=== PATIENT | female | born 1945 | race African-American/Black ===

== ENCOUNTER → 2017-01-05 | Outpatient (CLI) | payer MEDICARE, OTHER ==
[~2017-01-05] MED LIST: ALPR0.25 PO; ASPI81CH43 PO; ATOR20TA50 PO; FOLI1TAB51 PO; GABA300C8 PO; LOSA50TA6 PO; METH2.5T3 PO; NOR10T PO; ONDA8TAB6 PO; OXY10CRT PO; PRAV20TA3 PO
[2017-01-05 15:38] LABS: Basophils # (auto) 0 uL; Basophils % (auto) 0.2 % (0.0-2.0); DEFINITIVE VIEW TRANSMISSION; Eosinophils # (auto) 0.1 uL; Eosinophils % (auto) 1.8 % (0.0-7.0); Hematocrit 36.8 % (36.0-46.0); Lymphocytes # (auto) 1.8 uL; Lymphocytes % (auto) 28.4 % (10.0-50.0); Mean Corpuscular Hemoglobin 28.8 pg (28.0-32.0); Mean Corpuscular Hgb Conc. 32.5 g/dL (32.0-36.0); Mean Corpuscular Volume 88.8 fL (80.0-100.0); Monocytes # (auto) 0.6 uL; Monocytes % (auto) 9.8 % (0.0-12.0); Neutrophils # (auto) 3.8 uL; Neutrophils % (auto) 59.8 % (37.0-80.0); Platelet Count (auto) 359 10^3/uL (140-450); Red Cell Distribution Width 19.1 % (11.6-16.0); White Blood Cell 6.4 10^3/uL (4.4-10.8)
[2017-01-05 15:49] LABS: Albumin 3.5 g/dL (3.4-5.0); BUN/Creatinine Ratio 13.6; Bilirubin, Total 0.4 mg/dL (0.2-1.0); Calcium 9.1 mg/dL (8.5-10.1); Potassium 4.3 mmol/L (3.5-5.1); Total Protein 7.4 g/dL (6.4-8.2)
[2017-01-05 17:32] LABS: Anisocytosis Slight; Platelet Estimate Adequate
== END | disposition home or self-care (01) ==
LOC: LAB 14:34
DX: M06.9 Rheumatoid arthritis, unspecified (principal); M25.50 Pain in unspecified joint; D64.9 Anemia, unspecified; I10 Essential (primary) hypertension
CPT/HCPCS: 36415; 80053; 85025; 85652; 86141

== ENCOUNTER → 2017-04-13 | Outpatient (CLI) | payer MEDICARE, OTHER ==
[~2017-04-13] MED LIST changes: +GABA-497 PO; -GABA300C8 PO
[2017-04-13 16:30] LABS: Potassium 4.2 mmol/L (3.5-5.1)
[2017-04-13 16:31] LABS: Albumin 3.6 g/dL (3.4-5.0); BUN/Creatinine Ratio 11.8; Bilirubin, Total 0.3 mg/dL (0.2-1.0); Calcium 9.8 mg/dL (8.5-10.1); Total Protein 7.3 g/dL (6.4-8.2)
[2017-04-13 16:48] LABS: Basophils # (auto) 0 uL; Basophils % (auto) 0.5 % (0.0-2.0); DEFINITIVE VIEW TRANSMISSION; Eosinophils # (auto) 0.2 uL; Eosinophils % (auto) 3.5 % (0.0-7.0); Hematocrit 36.1 % (36.0-46.0); Hemoglobin 11.7 g/dL (12.2-16.2); Lymphocytes # (auto) 2.1 uL; Lymphocytes % (auto) 36.5 % (10.0-50.0); Mean Corpuscular Hgb Conc. 32.3 g/dL (32.0-36.0); Mean Corpuscular Volume 86.7 fL (80.0-100.0); Mean Platelet Volume 7.6 fL (7.4-10.4); Monocytes # (auto) 0.6 uL; Monocytes % (auto) 9.9 % (0.0-12.0); Neutrophils # (auto) 2.8 uL; Neutrophils % (auto) 49.6 % (37.0-80.0); Platelet Count (auto) 424 10^3/uL (140-450); White Blood Cell 5.7 10^3/uL (4.4-10.8)
[2017-04-13 16:49] LABS: Red Cell Distribution Width 20.5 % (11.6-16.0)
[2017-04-13 19:07] LABS: Platelet Estimate Adequate
[2017-04-13 19:08] LABS: Anisocytosis Moderate
== END | disposition home or self-care (01) ==
LOC: LAB 15:14
DX: M06.9 Rheumatoid arthritis, unspecified (principal); M25.50 Pain in unspecified joint; D64.9 Anemia, unspecified; I10 Essential (primary) hypertension
CPT/HCPCS: 36415; 80053; 85025; 85652; 86141

== ENCOUNTER → 2017-06-25 | Outpatient (CLI) | payer MEDICARE, OTHER ==
[2017-06-25 10:13] LABS: Basophils # (auto) 0 uL; Basophils % (auto) 0.3 % (0.0-2.0); CONDITION Y; DEFINITIVE SEE PRINTOUT; Eosinophils # (auto) 0.2 uL; Eosinophils % (auto) 3.7 % (0.0-7.0); Hematocrit 33.6 % (36.0-46.0); Hemoglobin 10.9 g/dL (12.2-16.2); Lymphocytes % (auto) 35.8 % (10.0-50.0); Mean Corpuscular Hemoglobin 27.6 pg (28.0-32.0); Mean Corpuscular Hgb Conc. 32.3 g/dL (32.0-36.0); Mean Corpuscular Volume 85.5 fL (80.0-100.0); Mean Platelet Volume 7.6 fL (7.4-10.4); Monocytes # (auto) 0.6 uL; Monocytes % (auto) 9.9 % (0.0-12.0); Neutrophils # (auto) 2.9 uL; Neutrophils % (auto) 50.3 % (37.0-80.0); Platelet Count (auto) 312 10^3/uL (140-450); White Blood Cell 5.7 10^3/uL (4.4-10.8)
[2017-06-25 10:16] LABS: Red Cell Distribution Width 20.8 % (11.6-16.0)
[2017-06-25 10:33] LABS: Anisocytosis Slight
[2017-06-25 10:34] LABS: Platelet Estimate Adequate
[2017-06-25 10:51] LABS: Albumin 3.3 g/dL (3.4-5.0); BUN/Creatinine Ratio 17.3; Bilirubin, Total 0.3 mg/dL (0.2-1.0); Calcium 9.3 mg/dL (8.5-10.1); Potassium 4.1 mmol/L (3.5-5.1)
== END | disposition home or self-care (01) ==
LOC: LAB 09:19
DX: I10 Essential (primary) hypertension (principal); M06.9 Rheumatoid arthritis, unspecified; D64.9 Anemia, unspecified; M25.50 Pain in unspecified joint; Z79.899 Other long term (current) drug therapy
CPT/HCPCS: 36415; 80053; 85025; 85652; 86141

== ENCOUNTER 2017-07-26 17:31 | Emergency (ER) | payer MEDICARE, OTHER ==
[~2017-07-26] VITALS: Ht 157.5 cm; Wt 77.1 kg
[2017-07-26 18:51] LABS: Basophils # (auto) 0 uL; Basophils % (auto) 0.6 % (0.0-2.0); Eosinophils # (auto) 0.2 uL; Eosinophils % (auto) 2.8 % (0.0-7.0); Hematocrit 34.4 % (36.0-46.0); Lymphocytes # (auto) 2.6 uL; Lymphocytes % (auto) 31.5 % (10.0-50.0); Mean Corpuscular Hemoglobin 27.6 pg (28.0-32.0); Mean Corpuscular Hgb Conc. 31.9 g/dL (32.0-36.0); Mean Corpuscular Volume 86.5 fL (80.0-100.0); Monocytes # (auto) 0.9 uL; Monocytes % (auto) 10.6 % (0.0-12.0); Neutrophils # (auto) 4.6 uL; Neutrophils % (auto) 54.5 % (37.0-80.0); Nucleated Red Blood Cells % 0.1 %; Platelet Count (auto) 370 10^3/uL (140-450); Red Blood Cells 3.98 10^6/uL (4.0-5.20); Red Cell Distribution Width 19.2 % (11.8-14.3); White Blood Cell 8.4 10^3/uL (4.4-10.8)
[2017-07-26 19:05] LABS: Alanine Aminotransferase 17 U/L (13-56); Albumin 3.6 g/dL (3.4-5.0); Alkaline Phosphatase 77 U/L (45-117); Anion Gap 6 (5-15); Aspartate Aminotransferase 16 U/L (15-37); BUN/Creatinine Ratio 14.7; Bilirubin, Total 0.2 mg/dL (0.2-1.0); Blood Urea Nitrogen 15 mg/dL (7-18); Calcium 9.5 mg/dL (8.5-10.1); Carbon Dioxide 26 mmol/L (21-32); Chloride 108 mmol/L (98-107); GFR African American 69 mL/min; GFR Non-African American 57 mL/min; Glucose 90 mg/dL (74-106); Magnesium 2.3 mg/dL (1.6-2.6); Potassium 4.5 mmol/L (3.5-5.1); Sodium 140 mmol/L (136-145); Total Protein 7.8 g/dL (6.4-8.2)
[2017-07-26] MEDS ORDERED: HYDROcodone-ACET 5/325MG TAB PO ONE (22:45)
[2017-07-27 00:28] LABS: Urine Bacteria FEW /hpf (None Seen); Urine Blood Negative /uL (Negative); Urine Mucus FEW (None Seen); Urine Specific Gravity 1.008 (1.001-1.035); Urine WBC 12 /hpf (0 - 5)
[2017-07-27] MEDS ORDERED: MORPHINE SULF INJ 2 MG/ML SYRINGE 1ML IV ONE (01:15)
[2017-07-27 04:30] VITALS: BP 134/68
== END 2017-07-27 05:37 | disposition home or self-care (01) ==
LOC: ER 17:31
DX: S43.401A Unspecified sprain of right shoulder joint, initial encounter (principal); S16.1XXA Strain of muscle, fascia and tendon at neck level, initial encounter; S29.019A Strain of muscle and tendon of unspecified wall of thorax, initial encounter; M19.90 Unspecified osteoarthritis, unspecified site; I25.10 Atherosclerotic heart disease of native coronary artery without angina pectoris; I50.9 Heart failure, unspecified; I11.0 Hypertensive heart disease with heart failure; M47.814 Spondylosis without myelopathy or radiculopathy, thoracic region; Z88.8 Allergy status to other drugs, medicaments and biological substances; Z79.82 Long term (current) use of aspirin; Z79.899 Other long term (current) drug therapy; Z90.49 Acquired absence of other specified parts of digestive tract; Z87.81 Personal history of (healed) traumatic fracture; X58.XXXA Exposure to other specified factors, initial encounter; Y93.89 Activity, other specified; Y92.89 Other specified places as the place of occurrence of the external cause; Y99.8 Other external cause status
CPT/HCPCS: 36415; 71020; 72125; 72128; 73200; 80053; 81001; 83735; 84484; 85025; 93005; 96374; 99285; J2270

== ENCOUNTER → 2017-08-27 | Outpatient (CLI) | payer MEDICARE, OTHER ==
[2017-08-27 10:51] LABS: Basophils # (auto) 0 uL; Eosinophils # (auto) 0.3 uL; Lymphocytes # (auto) 1.5 uL; Monocytes # (auto) 0.7 uL; Neutrophils # (auto) 2.4 uL; White Blood Cell 4.9 10^3/uL (4.4-10.8)
[2017-08-27 10:54] LABS: Basophils % (auto) 0.8 % (0.0-2.0); Eosinophils % (auto) 5.7 % (0.0-7.0); Hematocrit 33.6 % (36.0-46.0); Hemoglobin 10.7 g/dL (12.2-16.2); Lymphocytes % (auto) 29.5 % (10.0-50.0); Mean Corpuscular Hemoglobin 26.5 pg (28.0-32.0); Mean Corpuscular Hgb Conc. 31.8 g/dL (32.0-36.0); Mean Corpuscular Volume 83.4 fL (80.0-100.0); Nucleated Red Blood Cells % 0.1 %; Platelet Count (auto) 315 10^3/uL (140-450)
[2017-08-27 11:16] LABS: Albumin 3.4 g/dL (3.4-5.0); BUN/Creatinine Ratio 18.9; Bilirubin, Total 0.3 mg/dL (0.2-1.0); Calcium 9.5 mg/dL (8.5-10.1); Potassium 4.3 mmol/L (3.5-5.1); Total Protein 7.7 g/dL (6.4-8.2)
== END | disposition home or self-care (01) ==
LOC: LAB 10:05
DX: I10 Essential (primary) hypertension (principal); M06.9 Rheumatoid arthritis, unspecified; M25.50 Pain in unspecified joint; Z79.899 Other long term (current) drug therapy
CPT/HCPCS: 36415; 80053; 85025; 85652; 86141

== ENCOUNTER → 2017-10-05 | Outpatient (CLI) | payer MEDICARE, OTHER ==
[2017-10-05 17:17] LABS: Basophils # (auto) 0 uL; Eosinophils # (auto) 0 uL; Eosinophils % (auto) 0.7 % (0.0-7.0); White Blood Cell 6.2 10^3/uL (4.4-10.8)
[2017-10-05 17:20] LABS: Basophils % (auto) 0.4 % (0.0-2.0); Hematocrit 34.3 % (36.0-46.0); Hemoglobin 10.9 g/dL (12.2-16.2); Lymphocytes # (auto) 1.6 uL; Lymphocytes % (auto) 25.3 % (10.0-50.0); Mean Corpuscular Hemoglobin 26.2 pg (28.0-32.0); Mean Corpuscular Hgb Conc. 31.6 g/dL (32.0-36.0); Mean Corpuscular Volume 82.8 fL (80.0-100.0); Mean Platelet Volume 7.5 fL (6.9-10.8); Monocytes # (auto) 0.7 uL; Monocytes % (auto) 10.6 % (0.0-12.0); Neutrophils # (auto) 3.9 uL; Platelet Count (auto) 299 10^3/uL (140-450); Red Cell Distribution Width 17.8 % (11.8-14.3)
[2017-10-05 17:41] LABS: Reticulocyte Count 1.14 % (0.5-1.5)
[2017-10-05 17:43] LABS: Albumin 3.6 g/dL (3.4-5.0); BUN/Creatinine Ratio 19.5; Bilirubin, Total 0.3 mg/dL (0.2-1.0); Calcium 9.5 mg/dL (8.5-10.1); Potassium 4.2 mmol/L (3.5-5.1)
[2017-10-05 17:50] LABS: Temperature: 22.1 C (20.0-25.0)
[2017-10-06 08:06] LABS: Thyroxine (T4) 6.5 ug/dL (4.5-12.0)
[2017-10-07 01:09] LABS: Erythropoietin 49.5 mIU/mL (2.6-18.5)
== END | disposition home or self-care (01) ==
LOC: LAB 16:38
PROVIDERS: ATTEND Internal Medicine
DX: D46.9 Myelodysplastic syndrome, unspecified (principal); Z79.899 Other long term (current) drug therapy
CPT/HCPCS: 36415; 80053; 82607; 82668; 82728; 82746; 83010; 83540; 83550; 83615; 84436; 84443; 85025; 85045; 86038; 86880; 86885

== ENCOUNTER → 2017-11-11 | Outpatient (CLI) | payer MEDICARE, OTHER ==
[~2017-11-11] MED LIST changes: -GABA-497 PO; +GABA300C10 PO
[2017-11-11 11:14] LABS: Basophils # (auto) 0 uL; Basophils % (auto) 0.7 % (0.0-2.0); Eosinophils # (auto) 0.1 uL; Hemoglobin 11.8 g/dL (12.2-16.2); Lymphocytes # (auto) 1.5 uL; Mean Corpuscular Hemoglobin 26.7 pg (28.0-32.0); Monocytes # (auto) 0.4 uL; Neutrophils # (auto) 2.6 uL; Nucleated Red Blood Cells % 0.1 %; Red Blood Cells 4.42 10^6/uL (4.0-5.20)
[2017-11-11 11:16] LABS: Eosinophils % (auto) 2.7 % (0.0-7.0); Hematocrit 37.7 % (36.0-46.0); Lymphocytes % (auto) 31.6 % (10.0-50.0); Mean Corpuscular Hgb Conc. 31.3 g/dL (32.0-36.0); Mean Corpuscular Volume 85.3 fL (80.0-100.0); Monocytes % (auto) 9.5 % (0.0-12.0); Neutrophils % (auto) 55.5 % (37.0-80.0); Platelet Count (auto) 260 10^3/uL (140-450); White Blood Cell 4.6 10^3/uL (4.4-10.8)
[2017-11-11 11:23] LABS: Red Cell Distribution Width 22.1 % (11.8-14.3)
[2017-11-11 14:24] LABS: % Iron Saturation 13.6 % (15-50)
== END | disposition home or self-care (01) ==
LOC: LAB 11:06
PROVIDERS: ATTEND Internal Medicine
DX: D50.9 Iron deficiency anemia, unspecified (principal)
CPT/HCPCS: 36415; 82728; 83540; 83550; 85025

== ENCOUNTER → 2017-12-08 | Outpatient (CLI) | payer MEDICARE, OTHER ==
[2017-12-08 14:45] LABS: Basophils # (auto) 0.1 uL; Eosinophils # (auto) 0.1 uL; Eosinophils % (auto) 2.5 % (0.0-7.0); Hematocrit 41.1 % (36.0-46.0); Hemoglobin 13.3 g/dL (12.2-16.2); Lymphocytes # (auto) 1.8 uL; Lymphocytes % (auto) 32.7 % (10.0-50.0); Mean Corpuscular Hemoglobin 28.7 pg (28.0-32.0); Mean Corpuscular Hgb Conc. 32.3 g/dL (32.0-36.0); Monocytes # (auto) 0.6 uL; Monocytes % (auto) 9.8 % (0.0-12.0); Nucleated Red Blood Cells % 0.1 %; Platelet Count (auto) 293 10^3/uL (140-450); Red Blood Cells 4.61 10^6/uL (4.0-5.20); White Blood Cell 5.6 10^3/uL (4.4-10.8)
[2017-12-08 15:05] LABS: Albumin 3.6 g/dL (3.4-5.0); BUN/Creatinine Ratio 13.5; Bilirubin, Total 0.3 mg/dL (0.2-1.0); Calcium 8.9 mg/dL (8.5-10.1); Potassium 3.9 mmol/L (3.5-5.1); Total Protein 7.4 g/dL (6.4-8.2)
[2017-12-08 19:08] LABS: Red Cell Distribution Width 22.9 % (11.8-14.3)
== END | disposition home or self-care (01) ==
LOC: LAB 14:30
PROVIDERS: ATTEND Internal Medicine
DX: D50.9 Iron deficiency anemia, unspecified (principal)
CPT/HCPCS: 36415; 80053; 82607; 83540; 83615; 85025

== ENCOUNTER → 2018-03-07 | Outpatient (CLI) | payer MEDICARE, OTHER ==
[2018-03-07 11:32] LABS: Basophils # (auto) 0 uL; Basophils % (auto) 0.5 % (0.0-2.0); Eosinophils # (auto) 0.2 uL; Eosinophils % (auto) 3.7 % (0.0-7.0); Hematocrit 41.4 % (36.0-46.0); Hemoglobin 13.6 g/dL (12.2-16.2); Lymphocytes # (auto) 1.8 uL; Lymphocytes % (auto) 37.3 % (10.0-50.0); Mean Corpuscular Hemoglobin 30.4 pg (28.0-32.0); Mean Corpuscular Volume 92.2 fL (80.0-100.0); Monocytes # (auto) 0.5 uL; Monocytes % (auto) 10.9 % (0.0-12.0); Neutrophils # (auto) 2.3 uL; Neutrophils % (auto) 47.6 % (37.0-80.0); Platelet Count (auto) 270 10^3/uL (140-450); Red Blood Cells 4.49 10^6/uL (4.0-5.20); Red Cell Distribution Width 15.2 % (11.8-14.3); White Blood Cell 4.8 10^3/uL (4.4-10.8)
[2018-03-07 12:02] LABS: Albumin 3.7 g/dL (3.4-5.0); BUN/Creatinine Ratio 8.4; Bilirubin, Total 0.4 mg/dL (0.2-1.0); Calcium 9.8 mg/dL (8.5-10.1); Potassium 4.3 mmol/L (3.5-5.1); Total Protein 7.7 g/dL (6.4-8.2)
== END | disposition home or self-care (01) ==
LOC: LAB 10:55
PROVIDERS: ATTEND Internal Medicine
DX: D50.9 Iron deficiency anemia, unspecified (principal); I12.9 Hypertensive chronic kidney disease with stage 1 through stage 4 chronic kidney disease, or unspecified chronic kidney disease; N18.3 Chronic kidney disease, stage 3 (moderate); Z79.899 Other long term (current) drug therapy
CPT/HCPCS: 36415; 80053; 82728; 83615; 85025

== ENCOUNTER → 2018-06-13 | Outpatient (CLI) | payer MEDICARE, OTHER ==
[~2018-06-13] MED LIST changes: +ONDA-143 PO; -ONDA8TAB6 PO
[2018-06-13 15:17] LABS: Basophils # (auto) 0 uL; Basophils % (auto) 0.5 % (0.0-2.0); Eosinophils # (auto) 0.2 uL; Eosinophils % (auto) 3.3 % (0.0-7.0); Hematocrit 41.9 % (36.0-46.0); Hemoglobin 13.9 g/dL (12.2-16.2); Lymphocytes # (auto) 2.3 uL; Mean Corpuscular Hemoglobin 30.2 pg (28.0-32.0); Mean Corpuscular Volume 91.3 fL (80.0-100.0); Monocytes # (auto) 0.7 uL; Monocytes % (auto) 11.2 % (0.0-12.0); Neutrophils # (auto) 2.9 uL; Platelet Count (auto) 280 10^3/uL (140-450); Red Blood Cells 4.59 10^6/uL (4.0-5.20); Red Cell Distribution Width 14.8 % (11.8-14.3); White Blood Cell 6.1 10^3/uL (4.4-10.8)
[2018-06-13 15:56] LABS: % Iron Saturation 19.2 % (15-50)
[2018-06-13 18:04] LABS: BUN/Creatinine Ratio 10.3; Calcium 9.1 mg/dL (8.5-10.1); Potassium 3.9 mmol/L (3.5-5.1)
[2018-06-13 18:40] LABS: Bilirubin, Total 0.3 mg/dL (0.2-1.0)
== END | disposition home or self-care (01) ==
LOC: LAB 14:40
PROVIDERS: ATTEND Internal Medicine
DX: D50.9 Iron deficiency anemia, unspecified (principal); E78.5 Hyperlipidemia, unspecified; I12.9 Hypertensive chronic kidney disease with stage 1 through stage 4 chronic kidney disease, or unspecified chronic kidney disease; N18.9 Chronic kidney disease, unspecified; M06.9 Rheumatoid arthritis, unspecified; Z79.899 Other long term (current) drug therapy
CPT/HCPCS: 36415; 80053; 82728; 83540; 83550; 83615; 85025

== ENCOUNTER → 2018-10-14 | Outpatient (CLI) | payer MEDICARE, OTHER ==
[~2018-10-14] MED LIST changes: +LOSA-46 PO; -LOSA50TA6 PO
[2018-10-14 13:39] LABS: Basophils # (auto) 0 uL; Eosinophils # (auto) 0.1 uL; Eosinophils % (auto) 2.7 % (0.0-7.0); Hematocrit 38.9 % (36.0-46.0); Hemoglobin 12.6 g/dL (12.2-16.2); Lymphocytes # (auto) 1.5 uL; Lymphocytes % (auto) 34.7 % (10.0-50.0); Mean Corpuscular Hemoglobin 29.8 pg (28.0-32.0); Mean Corpuscular Hgb Conc. 32.5 g/dL (32.0-36.0); Mean Corpuscular Volume 91.7 fL (80.0-100.0); Monocytes # (auto) 0.4 uL; Monocytes % (auto) 8.4 % (0.0-12.0); Neutrophils # (auto) 2.3 uL; Neutrophils % (auto) 53.2 % (37.0-80.0); Platelet Count (auto) 259 10^3/uL (140-450); Red Blood Cells 4.24 10^6/uL (4.0-5.20); White Blood Cell 4.4 10^3/uL (4.4-10.8)
[2018-10-14 14:15] LABS: % Iron Saturation 18.3 % (15-50)
[2018-10-14 14:27] LABS: Albumin 3.5 g/dL (3.4-5.0); Potassium 4.2 mmol/L (3.5-5.1)
[2018-10-14 14:32] LABS: BUN/Creatinine Ratio 8.7; Bilirubin, Total 0.3 mg/dL (0.2-1.0); Total Protein 7.2 g/dL (6.4-8.2)
== END | disposition home or self-care (01) ==
LOC: LAB 13:12
PROVIDERS: ATTEND Internal Medicine
DX: D50.9 Iron deficiency anemia, unspecified (principal)
CPT/HCPCS: 36415; 80053; 82728; 83540; 83550; 83615; 85025

== ENCOUNTER → 2018-12-28 | Outpatient (CLI) | payer MEDICARE, OTHER ==
[2018-12-28 15:59] LABS: Basophils # (auto) 0 uL; Basophils % (auto) 0.5 % (0.0-2.0); Eosinophils # (auto) 0.2 uL; Eosinophils % (auto) 2.8 % (0.0-7.0); Hematocrit 39.5 % (36.0-46.0); Hemoglobin 12.8 g/dL (12.2-16.2); Lymphocytes # (auto) 1.8 uL; Lymphocytes % (auto) 30.9 % (10.0-50.0); Mean Corpuscular Hemoglobin 28.9 pg (28.0-32.0); Mean Corpuscular Hgb Conc. 32.3 g/dL (32.0-36.0); Mean Corpuscular Volume 89.3 fL (80.0-100.0); Monocytes # (auto) 0.5 uL; Neutrophils # (auto) 3.3 uL; Neutrophils % (auto) 57.8 % (37.0-80.0); Nucleated Red Blood Cells % 0.1 %; Platelet Count (auto) 237 10^3/uL (140-450); Red Blood Cells 4.42 10^6/uL (4.0-5.20); Red Cell Distribution Width 15.4 % (11.8-14.3); White Blood Cell 5.7 10^3/uL (4.4-10.8)
[2018-12-28 16:08] LABS: % Iron Saturation 15.6 % (15-50)
== END | disposition home or self-care (01) ==
LOC: LAB 14:30
PROVIDERS: ATTEND Internal Medicine
DX: D50.9 Iron deficiency anemia, unspecified (principal)
CPT/HCPCS: 36415; 83540; 83550; 85025

== ENCOUNTER 2019-01-28 22:59 | Emergency (ER) | payer MEDICARE, OTHER ==
[~2019-01-28] VITALS: Ht 160 cm; Wt 74.8 kg
[2019-01-28 23:45] LABS: Basophils # (auto) 0 uL; Basophils % (auto) 0.6 % (0.0-2.0); Eosinophils # (auto) 0.2 uL; Eosinophils % (auto) 3.2 % (0.0-7.0); Hematocrit 39.8 % (36.0-46.0); Hemoglobin 12.8 g/dL (12.2-16.2); Lymphocytes # (auto) 2.3 uL; Lymphocytes % (auto) 33.3 % (10.0-50.0); Mean Corpuscular Hemoglobin 28.7 pg (28.0-32.0); Mean Corpuscular Hgb Conc. 32.2 g/dL (32.0-36.0); Mean Corpuscular Volume 89.2 fL (80.0-100.0); Monocytes # (auto) 0.5 uL; Neutrophils # (auto) 3.7 uL; Neutrophils % (auto) 54.9 % (37.0-80.0); Platelet Count (auto) 275 10^3/uL (140-450); Red Blood Cells 4.47 10^6/uL (4.0-5.20); Red Cell Distribution Width 16.6 % (11.8-14.3); White Blood Cell 6.8 10^3/uL (4.4-10.8)
[2019-01-29 00:02] LABS: Albumin 3.8 g/dL (3.4-5.0); Anion Gap 9 (5-15); BUN/Creatinine Ratio 15.9; Blood Urea Nitrogen 14 mg/dL (7-18); Calcium 9.8 mg/dL (8.5-10.1); Carbon Dioxide 23 mmol/L (21-32); Chloride 109 mmol/L (98-107); GFR African American 81 mL/min; GFR Non-African American 67 mL/min; Glucose 90 mg/dL (74-106); Magnesium 2.3 mg/dL (1.6-2.6); Potassium 3.6 mmol/L (3.5-5.1); Sodium 141 mmol/L (136-145)
[2019-01-29 00:05] LABS: Urine Bacteria NONE SEEN /hpf (None Seen); Urine Blood Negative /uL (Negative); Urine Specific Gravity 1.004 (1.001-1.035); Urine WBC <1 /hpf (0 - 5)
[2019-01-29 00:07] LABS: Alanine Aminotransferase 17 U/L (13-56); Alkaline Phosphatase 70 U/L (45-117); Aspartate Aminotransferase 18 U/L (15-37); Bilirubin, Total 0.3 mg/dL (0.2-1.0); Total Protein 7.9 g/dL (6.4-8.2)
[2019-01-29] MEDS ORDERED: ONDANSETRON HCL 4 MG/2 ML VIAL IV ONE (00:45)
[2019-01-29] MEDS ORDERED: HYDROcodone-ACET 10/325MG TAB PO ONE (00:45)
[2019-01-29] MEDS ORDERED: cloNIDine HCL 0.1 MG TAB PO ONE ×2 (00:45→02:00)
[2019-01-29] MEDS ORDERED: hydrALAZINE HCL 20 MG/ML VL IV ONE (04:15)
[2019-01-29 05:30] VITALS: BP 137/76
== END 2019-01-29 05:31 | disposition home or self-care (01) ==
LOC: EDBD 22:59 → ER 22:59
DX: R51 Headache (principal); I12.9 Hypertensive chronic kidney disease with stage 1 through stage 4 chronic kidney disease, or unspecified chronic kidney disease; N18.9 Chronic kidney disease, unspecified; F41.9 Anxiety disorder, unspecified; M19.90 Unspecified osteoarthritis, unspecified site; I25.10 Atherosclerotic heart disease of native coronary artery without angina pectoris; Z88.1 Allergy status to other antibiotic agents; Z88.8 Allergy status to other drugs, medicaments and biological substances; Z79.82 Long term (current) use of aspirin; Z79.899 Other long term (current) drug therapy; Z90.49 Acquired absence of other specified parts of digestive tract
CPT/HCPCS: 36415; 70450; 71046; 72125; 80053; 81001; 83735; 84484; 85025; 93005; 94761; 96374; 96375; 99284; J0360; J2405

== ENCOUNTER 2023-01-30 16:59 | Emergency (ER) | payer MEDICARE, OTHER ==
[~2023-01-30] VITALS: Ht 160 cm; Wt 79.0 kg
[~2023-01-30 16:59] MED LIST changes: -LOSA-46 PO; +LOSA-69 PO; +METH2.5T PO; -METH2.5T3 PO
[2023-01-30] MEDS ORDERED: HYDROmorphone HCL 2 MG/ML VL/or syr IM ONE (18:00)
[2023-01-30 18:23] LABS: Basophils # (auto) 0 10 ^3/uL (0-0.2); Basophils % (auto) 0.7 % (0.0-2.0); Eosinophils # (auto) 0.2 10 ^3/uL (0-0.8); Eosinophils % (auto) 2.8 % (0.0-7.0); Hematocrit 39.2 % (36.0-46.0); Hemoglobin 12.9 g/dL (12.2-16.2); Lymphocytes # (auto) 1.5 10 ^3/uL (0.4-5.4); Lymphocytes % (auto) 24.4 % (10.0-50.0); Mean Corpuscular Hemoglobin 29.9 pg (28.0-32.0); Mean Corpuscular Volume 90.7 fL (80.0-100.0); Monocytes # (auto) 0.3 10 ^3/uL (0-1.3); Monocytes % (auto) 5.6 % (0.0-12.0); Neutrophils % (auto) 66.5 % (37.0-80.0); Red Blood Cells 4.32 10^6/uL (4.0-5.20); Red Cell Distribution Width 15.1 % (11.8-14.3)
[2023-01-30 18:43] LABS: Albumin 3.9 g/dL (3.4-5.0); Calcium 9.7 mg/dL (8.5-10.1); Potassium 4.1 mmol/L (3.5-5.1)
[2023-01-30 18:46] LABS: Bilirubin, Total 0.2 mg/dL (0.2-1.0); Total Protein 8.2 g/dL (6.4-8.2)
[2023-01-30 20:36] LABS: Urine Bacteria NONE SEEN /hpf (None Seen); Urine Blood Negative /uL (Negative); Urine WBC 2 /hpf (0 - 5)
[2023-01-30 21:46] LABS: Urine Bacteria NONE SEEN /hpf (None Seen); Urine Blood Negative /uL (Negative); Urine Specific Gravity 1.018 (1.001-1.035); Urine WBC 2 /hpf (0 - 5)
[2023-01-31 00:28] VITALS: BP 132/23
== END 2023-01-31 00:36 | disposition home or self-care (01) ==
LOC: ER 16:59
DX: R51.9 Headache, unspecified (principal); I12.9 Hypertensive chronic kidney disease with stage 1 through stage 4 chronic kidney disease, or unspecified chronic kidney disease; N18.9 Chronic kidney disease, unspecified; Z20.822 Contact with and (suspected) exposure to COVID-19
CPT/HCPCS: 36415; 70450; 80053; 81001; 85025; 87426; 93005; 96372; 99285; J1170

== ENCOUNTER 2025-08-21 17:28 | Inpatient (IN) | payer MEDICARE, OTHER ==
[~2025-08-21] VITALS: Ht 160 cm; Wt 77.5 kg
[~2025-08-21 17:28] MED LIST changes: +GABA-1250 PO; -GABA300C10 PO; +LOSA-534 PO; -LOSA-69 PO
--- NOTE | 2025-08-21 17:51 | ED.PDOC ---
GI ASSESSMENT HPI Comments 80 y/o F, BIBA, with PMHx of HTN, CKF, CAD, and HTN presents to the ED for CC of abdominal pain. EMS reports, patient is coming from Urgent Care where staff called d/t patient being hypertensive with a blood pressure of 200/110mmHg. Per EMS, patient went to for initial complaints of LLQ abdominal pain with associated nausea, vomiting, and constipation. Patient relays, that she has PMHx of IBS and had [id number] of "loose" diarrhea on Wednesday (08/19/25) however, has been unable to have a full bowel movement in approximately [id number]. Patient endorses, being given Toradol at [facility] and experiencing no relief. Patient denies melena, hematemesis, chills, fever, or faintness. No other symptoms or modifying factors are present at this time. Chief Complaint: Abdominal Pain Time Seen by MD: 17:45 Primary Care Provider: LOYD Reviewed Notes: Nurses Notes, Medications, Allergies Allergies: Coded Allergies: Cephalexin (Verified Allergy, Severe, 03/21/14) Magnesium Salicylate (Verified Allergy, Severe, 03/21/14) Home Meds Active Scripts Atorvastatin Calcium (ATORVASTATIN CALCIUM) 20 Mg Tab, 10 MG PO HS, #30 TAB Prov:DEANA GARNER MD 08/28/16 Aspirin (Asa) 81 Mg Ch, 81 MG PO DAILY, #30 Prov:DEANA GARNER MD 08/28/16 Reported Medications Folic Acid (FOLIC ACID) 1 Mg Tb, 1 MG PO DAILY 04/10/15 Pravastatin Sodium (PRAVACHOL TABLET) 20 Mg Tb, 40 MG PO HS, #90 04/10/15 Gabapentin (Gabapentin) 300 Mg Cap, 300 MG PO QPM, #60 04/10/15 Methotrexate (Methotrexate) 2.5 Mg Tab, PO QWEEKLY, MG 03/21/14 Alprazolam (Xanax) 0.25 Mg Tb, 0.25 MG PO PRN for ANXIETY 03/21/14 Oxycodone Hcl (OxyCONTIN ER Tablet) 10 Mg Tb, 10 MG PO Q8HPRN PRN for MODERATE PAIN 03/21/14 Hydrocodone-Acetaminophen (Orion 10/325MG) 1 Tab Tb, 1 TAB PO Q4HPRN PRN for MODERATE PAIN 03/21/14 Ondansetron (Zofran) 8 Mg Tab, 8 MG PO Q6HPRN PRN for NAUSEA / VOMITING, TAB 03/21/14 Losartan Potassium (Losartan Potassium) 50 Mg Tab, 50 MG PO BID for 30 Days, MG 03/21/14 Information Source: Patient Mode of Arrival: EMS Timing: Weeks Duration: Since onset Prehospital treatment: None Vomitus: Watery Stool: Impaction Severity: Moderate Recent: None Recent Hx of: None Pain Location: LLQ Modifying Factors: Nothing Associated sign and symptoms: Nausea, Vomiting, Constipation, Abdominal Pain Past Medical History PAST MEDICAL HISTORY: Arthritis, CAD, CKF, HTN Surgical History: Appendectomy, Tonsillectomy CONFIGURATION MANAGEMENT MANAGER History: No Pertinent CONFIGURATION MANAGEMENT MANAGER History Family History Family History: No family hx of DM, No family hx of Heart nancy Social History Smoker: Non-Smoker Alcohol: Rarely Drugs: Denies Drug Use Lives In: Home Constitutional: denies: chills, diaphoresis, fatigue, fever, malaise, sweats, weakness, others EENTM: denies: blurred vision, double vision, ear bleeding, ear discharge, ear drainage, ear pain, ear ringing, eye pain, eye redness, hearing loss, mouth pain, mouth swelling, nasal discharge, nose bleeding, nose congestion, nose pain, photophobia, tearing, throat pain, throat swelling, voice changes, others Respiratory: denies: cough, hemoptysis, orthopnea, SOB at rest, shortness of breath, SOB with excertion, stridor, wheezing, others Cardiovascular: denies: chest pain, dizzy spells, diaphoresis, Dyspnea on exertion, edema, irregular heart beat, left arm pain, lightheadedness, palpitations, PND, syncope, others Gastrointestinal: reports: abdominal pain, constipated, nausea, vomiting; denies: abdomen distended, blood streaked bowels, diarrhea, dysphagia, difficulty swallowing, hematemesis, melena, poor appetite, poor fluid intake, rectal bleeding, rectal pain, others Genitourinary: denies: abnormal vagina bleeding, burning, dyspareunia, dysuria, flank pain, frequency, hematuria, incontinence, pain, , vagina discharge, urgency, others Neurological: denies: dizziness, fainting, headache, left sided numbness, left sided weakness, numbness, paresthesia, pre-existing deficit, right sided numbness, right sided weakness, seizure, speech problems, tingling, tremors, weakness, others Musculoskeletal: denies: back pain, gout, joint pain, joint swelling, muscle pain, muscle stiffness, neck pain, others Integumetry: denies: bruises, change in color, change in hair/nails, dryness, laceration, lesions, lumps, rash, wounds, others Allergic/Immunocompromised: denies: Difficulty Healing, Frequent Infections, Hives, Itching, others Hematologic/Lymphatic: denies: anemia, blood clots, easy bleeding, easy bruising, swollen glands, others Endocrine: denies: excessive hunger, excessive sweating, excessive thirst, excessive urination, flushing, intolerance to cold, intolerance to heat, unexplained weight gain, unexplained weight loss, others Psychiatric: denies: anxiety, bipolar disorder, depression, hopeless, panic disorder, schizophrenia, sleepless, suicidal, others All Other Systems: Reviewed and Negative Physical Exam General Appearance: Moderate Distress, Normal HEENT: Normal ENT Inspection, Pharynx Normal Neck: Full Range of Motion, Non-Tender, Normal, Normal Inspection Respiratory: Chest Non-Tender, Lungs Clear, No Accessory Muscle Use, No Respiratory Distress, Normal Breath Sounds Cardiovascular: No Edema, No Murmur, No Gallop, Normal Peripheral Pulses, Regular Rate/Rhythm Breast Exam: Deferred Gastrointestinal: Diffuse, No Organomegaly, No Pulsatile Mass, Normal Bowel Sounds, Tenderness Genitalia: Deferred Pelvic: Deferred Rectal: Deferred Extremities: No calf tenderness, Normal capillary refill, Normal inspection, Normal range of motion, Non-tender, No pedal edema Musculoskeletal : Apperance: Normal Neurologic: Alert, wood box maker II-XII nml as Tested, No Motor Deficits, Normal Affect, Normal Mood, No Sensory Deficits Cerebellar Function: Normal Reflexes: Normal Skin: Dry, Normal Color, Warm Lymphatic: No Adenopathy Was a procedure done? Was a procedure done?: No GI differential Dx Differential Diagnosis: Bowel Obstruction, Cholangitis, Constipation, Inflammatory BD X-Ray, Labs, Meds, VS Vital Signs Date Time Temp Pulse Resp B/P (MAP) Pulse Ox O2 Delivery O2 Flow Rate FiO2 08/21/25 19:50 88 15 99 Room Air* 0 21 08/21/25 19:30 97.8 88 15 165/78 (107) 99 97.8 08/21/25 18:49 88 98 Room Air* 0 21 08/21/25 18:49 87 16 192/89 (123) 98 08/21/25 18:40 192/89 08/21/25 17:48 85 08/21/25 17:41 98.7 98 18 200/110 98 98.7 Lab Test 08/21/25 20:04 08/21/25 18:00 Range/Units Lactic Acid Level Pending 2.1 *H 0.4-2.0 mmol/L White Blood Count 6.6 4.4-10.8 10^3/uL Red Blood Count 5.05 4.0-5.20 10^6/uL Hemoglobin 15.1 12.2-16.2 g/dL Hematocrit 45.0 36.0-46.0 % Mean Corpuscular Volume 89.1 80.0-100.0 fL Mean Corpuscular Hemoglobin 29.9 28.0-32.0 pg Mean Corpuscular Hemoglobin Concent 33.5 32.0-36.0 g/dL Red Cell Distribution Width 14.6 H 11.8-14.3 % Platelet Count 285 140-450 10^3/uL Mean Platelet Volume 7.8 6.9-10.8 fL Neutrophils (%) (Auto) 66.0 37.0-80.0 % Lymphocytes (%) (Auto) 18.2 10.0-50.0 % Monocytes (%) (Auto) 14.0 H 0.0-12.0 % Eosinophils (%) (Auto) 1.2 0.0-7.0 % Basophils (%) (Auto) 0.6 0.0-2.0 % Neutrophils # (Auto) 4.4 1.6-8.6 10 ^3/uL Lymphocytes # (Auto) 1.2 0.4-5.4 10 ^3/uL Monocytes # (Auto) 0.9 0-1.3 10 ^3/uL Eosinophils # (Auto) 0.1 0-0.8 10 ^3/uL Basophils # (Auto) 0 0-0.2 10 ^3/uL Nucleated Red Blood Cells 0.2 % Sodium Level 141 136-145 mmol/L Potassium Level 3.8 3.5-5.1 mmol/L Chloride Level 104 98-107 mmol/L Carbon Dioxide Level 24 20-31 mmol/L Anion Gap 13 5-15 Blood Urea Nitrogen 9 9-23 mg/dL Creatinine 0.99 0.550-1.02 mg/dL Glomerular Filtration Rate Calc 58 >90 mL/min BUN/Creatinine Ratio 9.1 L 10.0-20.0 Serum Glucose 102 74-106 mg/dL Calcium Level 10.4 8.7-10.4 mg/dL Total Bilirubin 0.4 0.2-1.0 mg/dL Aspartate Amino Transferase (AST) 23 13-40 U/L Alanine Aminotransferase (ALT) 12 7-40 U/L Alkaline Phosphatase 80 46-116 U/L Total Protein 7.9 5.7-8.2 g/dL Albumin 4.4 3.2-4.8 g/dL Lipase 33 12-53 U/L Current Medications Medications (Trade) Dose Ordered Sig/Tim Route Start Time Stop Time Status Last Admin Clonidine HCl (Catapres Tablet) 0.2 mg ONCE ONCE PO 08/21/25 17:45 08/21/25 17:46 DC 08/21/25 18:40 X-Ray, Labs, Meds, VS Comment Imaging was reviewed by this provider, there is no obvious pathological or acute disease process. Pending radiology review Labs were reviewed by this provider, no abnormalities Vital signs reviewed by this provider, clinically stable Blood pressure better controlled after 0.2 clonidine. Time of 1ST Reevaluation: 18:15 Reevaluation 1ST: Unchanged Patient Education/Counseling: Diagnosis, Treatment, Need For Follow Up (Follow up with PCP next available appointment. Return to the emergency department if symptoms worsen.) Family Education/Counseling: No Family Present SEPSIS Sepsis Screen Date sepsis recognized/suspect: Aug 21, 2025 Time Sepsis recognized/suspect: 1734 Recent Procedure: No On Antibiotic Therapy: No Respiratory Rate >20: No Heart Rate >90: Yes Temp<36 C (96.8 F) or >38.3 C: No SBP <90 or MAP <65 mmHG: No New Acute Mental Status Change: No Is the patient on CPAP, BIPAP,: No Physician Orders Ct Ab Pel Wo Con-No Oral Or Iv (08/21/25 17:45) Urinalysis (08/21/25 17:45) Electrocardigram (08/21/25 17:58) Sodium Chloride 0.9% (08/21/25 19:30) Vital Signs Date Time Temp Pulse Resp B/P (MAP) Pulse Ox O2 Delivery O2 Flow Rate FiO2 08/21/25 19:50 88 15 99 Room Air* 0 21 08/21/25 19:30 97.8 88 15 165/78 (107) 99 97.8 08/21/25 18:49 88 98 Room Air* 0 21 08/21/25 18:49 87 16 192/89 (123) 98 08/21/25 18:40 192/89 08/21/25 17:48 85 08/21/25 17:41 98.7 98 18 200/110 98 98.7 Laboratory Tests Test 08/21/25 18:00 08/21/25 20:04 Lactic Acid Level 2.1 mmol/L (0.4-2.0) *H Pending White Blood Count 6.6 10^3/uL (4.4-10.8) Medications Medications Dose Ordered Sig/Tim Route Start Time Stop Time Status Last Admin Dose Admin Clonidine HCl 0.2 mg ONCE ONCE PO 08/21/25 17:45 08/21/25 17:46 DC 08/21/25 18:40 Departure 1 Departure Time of Disposition: 20:30 Impression: Primary Impression: Non-specific colitis Additional Impressions: Dehydration, severe Hypertension Qualified Codes: I10 - Essential (primary) hypertension Disposition: HOME / SELF CARE / HOMELESS Condition: Stable Discharged With: Self Critical Care Note Critical Care Time?: No Stability Stability form required: No Heart Score Heart Score: Heart Score Response (Comments) Value History N/A 0 EKG N/A 0 Age N/A 0 Risk Factors N/A 0 Troponin N/A 0 Total 0 I personally scribed for RONNA SUAZO [employer]DLE SCHOOL COMBINATION TEACHER ([email or web address]) on 08/21/25 at 17:51. Electronically submitted by Lisa Ambrose ([employer]). I personally scribed for RONNA SUAZO [employer] SCHOOL COMBINATION TEACHER ([email or web address]) on 08/21/25 at 18:01. Electronically submitted by Lisa Ambrose ([employer]). I personally scribed for RONNA SUAZO MIDDLE SCHOOL COMBINATION TEACHER ([email or web address]) on 08/21/25 at 18:05. Electronically submitted by Lisa Ambrose ([employer]). I personally scribed for RONNA SUAZO ([email or web address]) on 08/21/25 at 18:06. Electronically submitted by Lisa Ambrose ([email or web address]). RONNA SUAZO Aug 21, 2025 17:51
[2025-08-21 18:32] LABS: Alanine Aminotransferase 12 U/L (7-40); Albumin 4.4 g/dL (3.2-4.8); Alkaline Phosphatase 80 U/L (46-116); Anion Gap 13 (5-15); BUN/Creatinine Ratio 9.1 (10.0-20.0); Carbon Dioxide 24 mmol/L (20-31); Chloride 104 mmol/L (98-107); Glucose 102 mg/dL (74-106); Lipase 33 U/L (12-53); Potassium 3.8 mmol/L (3.5-5.1); Sodium 141 mmol/L (136-145); Total Protein 7.9 g/dL (5.7-8.2)
[2025-08-21 18:33] LABS: Bilirubin, Total 0.4 mg/dL (0.2-1.0)
[2025-08-21 18:37] LABS: Blood Urea Nitrogen 9 mg/dL (9-23); Calcium 10.4 mg/dL (8.7-10.4)
[2025-08-21 18:42] LABS: Hematocrit 45.0 % (36.0-46.0); Hemoglobin 15.1 g/dL (12.2-16.2); Mean Corpuscular Hemoglobin 29.9 pg (28.0-32.0); Mean Corpuscular Volume 89.1 fL (80.0-100.0); Nucleated Red Blood Cells % 0.2 %
[2025-08-21 18:49] VITALS: PULSE 88; O2SAT 98
[2025-08-21 18:53] LABS: Lactic Acid w/Reflex 2.1 mmol/L (0.4-2.0)
--- NOTE | 2025-08-21 18:59 | DVH ---
COMPUTERIZED TOMOGRAPHY ABDOMEN AND PELVIS WITHOUT CONTRAST REASON FOR EXAM: abd pain COMPARISON: None TECHNIQUE: Spiral scans were acquired from the diaphragm to the symphysis pubis without intravenous c ontrast administration. 2-D coronal and sagittal reformatted images were provided. Radiation optimiza tion: All CT scans at this facility use at least one of these dose optimization techniques: Automated exposure control mA and/or kV adjustment per patient size (includes targeted exams where dose is mat ched to clinical indication) or iterative reconstruction. RADIATION DOSE: CTDI: 11.87 mGy DLP: 609.14 mGy-cm FINDINGS: There are 3 mm and 4 mm nodules in the anterior right middle lobe. There is a 5 mm nodule in the rig ht lower lobe near the costophrenic sulcus. There is a 5 mm nodule in the medial right lower lobe pedro pablo r the base. There is a 5 mm nodule at the periphery of the left lower lobe. There are additional scat tered 3-4 mm nodules in the visualized lung bases. There is no pleural effusion. There is no pericard ial effusion. There are coronary artery calcifications. The spleen is not enlarged. The liver is normal in size and contour. Evaluation of the abdominal orga ns is suboptimal in the absence of intravenous contrast. No calcified gallstone is identified. There is no pericholecystic edema. Unenhanced appearance of the pancreas is unremarkable. The adrenal gland s are normal. The kidneys are similar in size. There is no hydronephrosis of either kidney. There is no renal, ureteral, or bladder calculus. There is no abdominal aortic aneurysm. No pathologic lympha denopathy is identified by size criteria. There are multiple calcified fibroids. The ovaries are wit hin normal limits for age. No free fluid is identified in the abdomen or pelvis. The urinary bladder is grossly unremarkable within the limitations of streak artifact from the right hip prosthesis. The re is mild descending colonic diverticulosis without evidence of diverticulitis. There is moderate fl uid in the ascending and transverse colon, suggestive of diarrhea. The appendix is not seen. There i s no pericecal inflammatory change to suggest acute appendicitis. There is no significant distention of the small bowel. No acute osseous abnormality is identified. There is surgical fusion of the poste rior elements of L4, L5, and S1. IMPRESSION: Moderate fluid in the ascending and transverse colon, suggestive of diarrhea. Correlate clinically f or possible enteritis. Scattered nodules at both lung bases measuring up to 5 mm. According to the Fleischner society guide lines, no dedicated follow-up is recommended. Fleischner Society Guidelines for Incidental Pulmonary Nodules: SOLID NODULES Single low-risk: < 6 mm No follow up. 6-[address] at 6-12 months, then consider CT at 18-24 months. > [address] at 3 months, PET/CT or bx. Single high risk: < [address] at 12 months. 6-[address] at 6-12 months, then consider CT at 18-24 months. > [address] at 3 months, PET/CT or bx. Multiple low risk: < 6 mm No follow up. 6-[address] at 3-6 months, then consider CT at 18-24 months. > [address] at 3-6 months, then consider CT at 18-24 months. Multiple high risk: < [address] at 12 months. 6-[address] at 3-6 months, then CT at 18-24 months. > [address] at 3-6 months, then CT at 18-24 months. SUBSOLID NODULES Ground glass: < 6 mm No follow up. > [address] at 6-12 months, then CT every 2 years for 5 years. Part solid: < 6 mm No follow up. > [address] at 3-6 months. If stable with solid component <6mm, annual CT for 5 years. Multiple: < [address] at 3-6 months. If stable, consider CT at 2 and 4 years. > [address] at 3-6 months. Subsequent based on most suspicious nodule. Notes: Recommendations do not apply to cancer screening, patient with immunosuppression or known primary can cer. Reference: Radiology 2017; MacMahon et al; [id number]:[id number]
[2025-08-21 19:50] VITALS: PULSE 88; RESP 15; O2SAT 99
[2025-08-21] MEDS: SODIUM CHLORIDE 0.9% 1,000 ML IV ONE (20:50)
[2025-08-21] MEDS ORDERED: SIME80CH49 PO (22:31)
[2025-08-21] MEDS: MAALOX PLUS or MAALOX 30 ML PO ONE (22:39)
[2025-08-21] MEDS: HYDROcodone-ACET 5/325MG TAB PO ONE (22:40)
--- NOTE | 2025-08-21 23:48 | DVHHPRES ---
History of Present Illness Resident Creating Document: ASTRID AWAN RESIDENT History of Present Illness Ms. Espinoza is an 80-year-old female with prior medical history of IBS, hemorrhoids, hypertension, arthritis, peripheral neuropathy, and questionable atrial flutter, who presents today with chief complaint of abdominal pain. The patient refers onset of epigastric pain approximately 2 weeks ago, described as colicky, becoming generalized, 8/10 intensity, without aggravating or relieving factors, associated with diarrhea on Wednesday. The patient states that in the last 24 hours she has developed nausea and multiple emetic episodes (8-10), stating she has been unable to hold down food or drink. She denies fever, bloody vomit, chest pain, palpitations, loss of consciousness, and other symptoms. On evaluation in the ED, the patient was hypertensive with BP reading of 200/110, other vitals were stable. Initial labs show CBC within normal range, and lactic acid of 2.1. Abdominal CT shows moderate fluid in the ascending and transverse colon suggestive diarrhea possibly due to enteritis. She was started on IV fluids, IV pain medication, and IV antibiotics. She was admitted for further workup and monitoring. Personal History: IBS, hemorrhoids, hypertension, arthritis, peripheral neuropathy, questionable atrial flutter Surgical history: Ovarian cyst removal, right total hip replacement, rotator cuff repair Allergies: Keflex ( causes throat swelling), ciprofloxacin ( causes face swelling) Social: Denies drug, alcohol, and tobacco use. States she lives by herself and feels safe. Review of Systems Review of Systems Constitutional: Denies weight loss, fever and chills. HEENT: Denies changes in vision and hearing. Respiratory: Denies shortness of breath and cough Cardiovascular: Denies chest discomfort or palpitations GI: Refers abdominal pain, bloating, vomiting, diarrhea : Denies dysuria and urinary frequency. Musculoskeletal: Denies symptoms Skin: Denies rash and pruritus. Neurological: denies dizziness headache vision or hearing problems Allergies: Coded Allergies: Cephalexin (Verified Allergy, Severe, 08/22/25) Per pt throat swelling Ciprofloxacin (Verified Allergy, Severe, 08/22/25) Magnesium Salicylate (Verified Allergy, Severe, 03/21/14) Medications Current Medications Medications Dose Ordered Sig/Tim Route Start Time Stop Time Status Last Admin Dose Admin Acetaminophen 325 mg Q4HP PRN PO 08/21/25 23:15 Exam Vital Signs Vital Signs Date Time Temp Pulse Resp B/P (MAP) Pulse Ox O2 Delivery O2 Flow Rate FiO2 08/21/25 23:00 70 10 152/70 (97) 97 08/21/25 19:50 Room Air* 0 21 08/21/25 19:30 97.8 97.8 Exam General: The patient alert and oriented in person place and time. Patient following commands HEENT: Normocephalic, atraumatic, normal reactive pupils, EOM intact, pink conjunctiva, pink dry mucous membrane Respiratory/pulmonary: Bilateral chest expansion, no pain on palpation of chest wall, clear lungs bilaterally, vesicular murmurs present in almost all lung jones, no associated crackles or wheezes. Cardiovascular: Normal RRR, normal S1 and S2, no murmurs Abdomen: Abdomen nondistended, hyperactive bowel sounds, soft, minor pain to palpation in all abdominal quadrants, L CVA tenderness on percussion, no palpable masses. Extremities: No deformities, there is no peripheral edema present at the lower extremities, normal pulses Skin: No rashes or pruritus, there is no sacral edema present at this time. Neurological: Intact cranial nerves with no focal neurologic deficits Labs/Xrays Labs Test 08/21/25 20:04 08/21/25 18:00 Range/Units Lactic Acid Level 1.8 0.4-2.0 mmol/L White Blood Count 6.6 4.4-10.8 10^3/uL Red Blood Count 5.05 4.0-5.20 10^6/uL Hemoglobin 15.1 12.2-16.2 g/dL Hematocrit 45.0 36.0-46.0 % Mean Corpuscular Volume 89.1 80.0-100.0 fL Mean Corpuscular Hemoglobin 29.9 28.0-32.0 pg Mean Corpuscular Hemoglobin Concent 33.5 32.0-36.0 g/dL Red Cell Distribution Width 14.6 H 11.8-14.3 % Platelet Count 285 140-450 10^3/uL Mean Platelet Volume 7.8 6.9-10.8 fL Neutrophils (%) (Auto) 66.0 37.0-80.0 % Lymphocytes (%) (Auto) 18.2 10.0-50.0 % Monocytes (%) (Auto) 14.0 H 0.0-12.0 % Eosinophils (%) (Auto) 1.2 0.0-7.0 % Basophils (%) (Auto) 0.6 0.0-2.0 % Neutrophils # (Auto) 4.4 1.6-8.6 10 ^3/uL Lymphocytes # (Auto) 1.2 0.4-5.4 10 ^3/uL Monocytes # (Auto) 0.9 0-1.3 10 ^3/uL Eosinophils # (Auto) 0.1 0-0.8 10 ^3/uL Basophils # (Auto) 0 0-0.2 10 ^3/uL Nucleated Red Blood Cells 0.2 % Sodium Level 141 136-145 mmol/L Potassium Level 3.8 3.5-5.1 mmol/L Chloride Level 104 98-107 mmol/L Carbon Dioxide Level 24 20-31 mmol/L Anion Gap 13 5-15 Blood Urea Nitrogen 9 9-23 mg/dL Creatinine 0.99 0.550-1.02 mg/dL Glomerular Filtration Rate Calc 58 >90 mL/min BUN/Creatinine Ratio 9.1 L 10.0-20.0 Serum Glucose 102 74-106 mg/dL Calcium Level 10.4 8.7-10.4 mg/dL Total Bilirubin 0.4 0.2-1.0 mg/dL Aspartate Amino Transferase (AST) 23 13-40 U/L Alanine Aminotransferase (ALT) 12 7-40 U/L Alkaline Phosphatase 80 46-116 U/L Total Protein 7.9 5.7-8.2 g/dL Albumin 4.4 3.2-4.8 g/dL Lipase 33 12-53 U/L SEPSIS Sepsis Screen Date sepsis recognized/suspect: Aug 21, 2025 Time Sepsis recognized/suspect: 1929 Recent Procedure: No On Antibiotic Therapy: No Respiratory Rate >20: No Heart Rate >90: No Temp<36 C (96.8 F) or >38.3 C: No SBP <90 or MAP <65 mmHG: No New Acute Mental Status Change: No Is the patient on CPAP, BIPAP,: No Physician Orders Ct Ab Pel Wo Con-No Oral Or Iv (08/21/25 17:45) Urinalysis (08/21/25 17:45) Electrocardigram (08/21/25 17:58) Admit (08/21/25 23:15) Allergies (08/21/25 23:15) Code Status (08/21/25 23:15) Acetaminophen Tablet (Tylenol Tablet) (08/21/25 23:15) Condition: Stable (08/21/25 23:15) Clear Liq Diet (08/22/25 Breakfast) Stat Ekg For Chest Pain (08/21/25 23:15) Notify Md Of Changes From Base (08/21/25 23:15) Emergency Dysrhythmia Protocol (08/21/25 23:15) Rhythm Strips Once Every Shift (08/21/25 23:15) Vital Signs Date Time Temp Pulse Resp B/P (MAP) Pulse Ox O2 Delivery O2 Flow Rate FiO2 08/21/25 23:00 70 10 152/70 (97) 97 08/21/25 21:30 66 12 133/58 (83) 95 08/21/25 20:30 76 12 144/71 (95) 96 08/21/25 19:50 88 15 99 Room Air* 0 21 08/21/25 19:40 144/71 08/21/25 19:30 97.8 88 15 165/78 (107) 99 97.8 08/21/25 18:49 88 98 Room Air* 0 21 08/21/25 18:49 87 16 192/89 (123) 98 08/21/25 18:40 192/89 08/21/25 17:48 85 08/21/25 17:41 98.7 98 18 200/110 98 98.7 Laboratory Tests Test 08/21/25 18:00 08/21/25 20:04 Lactic Acid Level 2.1 mmol/L (0.4-2.0) *H 1.8 mmol/L (0.4-2.0) White Blood Count 6.6 10^3/uL (4.4-10.8) Medications Medications Dose Ordered Sig/Tim Route Start Time Stop Time Status Last Admin Dose Admin Acetaminophen/ Hydrocodone Bitart 1 tab ONCE ONCE PO 08/21/25 22:30 08/21/25 22:35 DC 08/21/25 22:40 1 TAB Al Hydrox/Mg Hydrox/Simethicone 30 ml ONCE ONCE PO 08/21/25 22:45 08/21/25 22:46 DC 08/21/25 22:39 30 ML Clonidine HCl 0.2 mg ONCE ONCE PO 08/21/25 17:45 08/21/25 17:46 DC 08/21/25 18:40 0.2 MG Sodium Chloride 1,000 ml @ 1,000 mls/hr Q1H ONCE IV 08/21/25 19:30 08/21/25 20:29 DC 08/21/25 20:50 1,000 MLS/HR Assessment/Plan Assessment/Plan Assessment and Plan: Intractable Abdominal Pain secondary to Acute Colitis - Abdominal CT: Moderate fluid in the ascending and transverse colon, suggestive of diarrhea, correlate clinically for possible enteritis. - NS 1000 cc bolus - NS 500 cc bolus - Metronidazole 500 mg IV q.8 hours - Clindamycin 300 mg IV q.8 hours ( per pharmacy recommendation as patient is al lergic to cephalosporins ) - Clear liquid diet - Zofran 4 mg IV q 4 hours PRN Dehydration due to above Lactic Acidosis likely due to above (2.1 -> 1. - IV fluids Possible GERD - Maalox 30 mL PO once - Maalox 15 mL q 8 hours PRN Hypertensive Urgency - Monitor BP - Clonidine 0.2 mg PO once - Losartan 25 mg PO daily - Metoprolol succinate 25 PO daily - Amlodipine 10 mg PO daily - EKG shows Ectopic atrial rhythm with repolarization abnormalities probably secondary to LVH - Ordered echocardiogram, troponin and BNP Pulmonary nodules - Abdominal CT: Scattered nodules at both lung bases measuring up to 5 mm. 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 Donahue Goals of care discussed with the patient for over 26 minutes. FULL CODE. Plan discussed with: Patient, Other (Nurses) My Orders Orders - ASTRID AWAN RESIDENT Procedure Category Date Status Time Admit ADMIT 08/21/25 Transmitted 23:15 Allergies JANAE 08/21/25 In Process 23:15 Code Status CODE 08/21/25 Transmitted 23:15 Acetaminophen Tablet PHA 08/21/25 In Process (Tylenol Tablet) 23:15 Condition: Stable JANAE 08/21/25 In Process 23:15 Clear Liq Diet DIET 08/22/25 Transmitted Breakfast Stat Ekg For Chest JANAE 08/21/25 In Process Pain 23:15 Notify Of Changes JANAE 08/21/25 In Process From Base 23:15 Emergency Dysrhythmia JANAE 08/21/25 In Process Protocol 23:15 Rhythm Strips Once JANAE 08/21/25 In Process Every Shift 23:15 Date of Service: Aug 21, 2025 Billing Provider: LIDYA CASTILLO MD Common Visit Codes: 73265-[id number] INP/OBS CARE (HIGH) Secondary Visit Codes: 46948-[id number] CARE PLAN 30 MINUTES ASTRID AWAN RESIDENT Aug 21, 2025 23:48 FARIDA PHILLIPS RESIDENT Aug 22, 2025 04:27
[2025-08-22] VITALS (7 sets, daily range): BP systolic 135–164; BP diastolic 59–95; PULSE 56–77; RESP 17–19; TEMP 97–98.4; O2SAT 94–98
[2025-08-22] MEDS: SODIUM CHLORIDE 0.9% 500 ML IV ONE (00:31)
[2025-08-22] MEDS: METOPROLOL TARTRATE 25 MG TAB PO ONE (00:32)
[2025-08-22] MEDS ORDERED: ONDANSETRON HCL 4 MG/2 ML VIAL IV PRN (00:45)
[2025-08-22] MEDS ORDERED: MAALOX PLUS or MAALOX 30 ML PO PRN (00:45)
[2025-08-22] MEDS ORDERED: PIPERACILLIN-TAZOB 3.375GM 100 ML IV SCH (00:45)
[2025-08-22] MEDS: CLINDAMYCIN 300MG IV 50 ML IV SCH ×2 (01:58→09:22)
[2025-08-22 03:11] LABS: Urine Protein, UAD Negative (Negative)
--- NOTE | 2025-08-22 03:41 | DVH ---
INDICATION: eval livere and GB TECHNIQUE: Multiple real-time sonographic images were obtained of the right upper quadrant. COMPARISON: None FINDINGS: The liver demonstrates normal homogeneous echotexture without focal mass lesions. The liver measures 12.5 cm. Normal hepatopetal portal venous flow identified. No evidence of pleural effusion or abdominal ascites. There is no intrahepatic or extrahepatic ductal dilatation. The common duct measures 0.4 cm. The gallbladder is without evidence of stone or sludge. The gallbladder wall measures 0.3 cm and is w ithin normal limits. Negative sonographic Quiñonez's sign. The right kidney measures 8.3 cm. The right kidney is normal in contour, size, and shape. The echogen icity is normal. There is no hydronephrosis. The pancreas is not well visualized due to overlying bowel gas. IMPRESSION: 1. Unremarkable right upper quadrant sonogram.
[2025-08-22 06:06] LABS: Hematocrit 43.6 % (36.0-46.0); Hemoglobin 15.1 g/dL (12.2-16.2); Mean Corpuscular Hemoglobin 31.6 pg (28.0-32.0); Mean Corpuscular Volume 91.1 fL (80.0-100.0); Nucleated Red Blood Cells % 0.2 %
[2025-08-22 06:13] LABS: Anion Gap 13 (5-15); Carbon Dioxide 23 mmol/L (20-31); Potassium 3.6 mmol/L (3.5-5.1); Sodium 145 mmol/L (136-145)
[2025-08-22 06:19] LABS: Glucose 98 mg/dL (74-106)
[2025-08-22 06:30] LABS: BUN/Creatinine Ratio 6.7 (10.0-20.0); Blood Urea Nitrogen < 5 mg/dL (9-23); Calcium 8.5 mg/dL (8.7-10.4); Chloride 109 mmol/L (98-107)
[2025-08-22] MEDS: ENOXAPARIN SOD 30 MG/0.3 ML SYRINGE SC SCH (08:25)
[2025-08-22] MEDS: METOPROLOL SUCCINATE XL 50 MG TAB PO SCH (08:25)
--- NOTE | 2025-08-22 08:57 | ECG ---
[facility] Test Date: 2025-08-21 Test Time: 17:48:46 Pat Name: KERI PRIETO Department: [facility] ED Room: 0201 A Gender: F New Patient Escort: gema : 1945 Requested By: RONNA SUAZO Order Number: [id number] Reading MD: Gary Duran Measurements Intervals [place] Rate: 85 P: -72 CO: 113 QRS: 68 QRSD: 78 T: 236 QT: 407 QTc: 484 Interpretive Statements Ectopic atrial rhythm Borderline short CO interval Probable LVH with secondary repol abnrm Electronically Signed On 08-22-2025 9:06:10 PDT by Gary Duran Please click the below link to view image of tracing.
[2025-08-22] MEDS ORDERED: LOSARTAN POTASSIUM 25 MG TAB PO SCH ×2 (10:00→22:00)
[2025-08-22] MEDS ORDERED: DICYCLOMINE HCL 10 MG CAP PO PRN (11:45)
[2025-08-22] MEDS: ACETAMINOPHEN 325 MG TAB PO PRN ×2 (14:03→17:12)
--- NOTE | 2025-08-22 15:33 | DVHPNRES ---
Progress Note Date Seen: Aug 22, 2025 Resident Creating Document: GALA COX RESIDENT Medical Necessity Reason Pt with a Central, PICC or Fol: No Subjective Review of Systems Ms. Espinoza is an 80-year-old female with prior medical history of IBS, hemorrhoids, hypertension, arthritis, peripheral neuropathy, and questionable atrial flutter, who presents today with chief complaint of abdominal pain. The patient refers onset of epigastric pain approximately 2 weeks ago, described as colicky, becoming generalized, 8/10 intensity, without aggravating or relieving factors, associated with diarrhea on Wednesday. The patient states that in the last 24 hours she has developed nausea and multiple emetic episodes (8-10), stating she has been unable to hold down food or drink. She denies fever, bloody vomit, chest pain, palpitations, loss of consciousness, and other symptoms. On evaluation in the ED, the patient was hypertensive with BP reading of 200/110, other vitals were stable. Initial labs show CBC within normal range, and lactic acid of 2.1. Abdominal CT shows moderate fluid in the ascending and transverse colon suggestive diarrhea possibly due to enteritis. She was started on IV fluids, IV pain medication, and IV antibiotics. She was admitted for further workup and monitoring. Personal History: IBS, hemorrhoids, hypertension, arthritis, peripheral neuropathy, questionable atrial flutter Surgical history: Ovarian cyst removal, right total hip replacement, rotator cuff repair Allergies: Keflex ( causes throat swelling), ciprofloxacin ( causes face swelling) Social: Denies drug, alcohol, and tobacco use. States she lives by herself and feels safe. The patient was seen and examined at bedside. Overnight events were reviewed. The patient reports having diffuse abdominal pain, she receives treatment for IBS for years. The patient wanted to take losartan at nighttime. She reports having fresh bleeding while bowel movement on Wednesday. The stool was hard to pass. She complains of constipation. Patient's sister (friend?) was at bedside. Objective vital signs Vital Sign Date Time Temp Pulse Resp B/P (MAP) Pulse Ox O2 Delivery O2 Flow Rate FiO2 08/22/25 13:00 98.4 63 17 135/68 (90) 97 98.4 08/22/25 08:00 Room Air* 0 21 Total Intake and Output 08/21/25 08/21/25 08/22/25 15:00 23:00 07:00 Intake Total 1000 ml 825 ml Balance 1000 ml 825 ml medications Current Medications Medications Dose Ordered Sig/Tim Route Start Time Stop Time Status Last Admin Dose Admin Acetaminophen 325 mg Q4HP PRN PO 08/21/25 23:15 08/22/25 14:03 325 MG Amlodipine Besylate 10 mg DAILY PO 08/22/25 10:00 08/22/25 09:44 10 MG Aspirin 81 mg DAILY PO 08/22/25 10:00 08/22/25 09:43 81 MG Atorvastatin Calcium 10 mg HS PO 08/22/25 22:00 Metronidazole 100 ml @ 100 mls/hr Q8HR IV 08/22/25 00:45 08/22/25 13:55 100 MLS/HR Al Hydrox/Mg Hydrox/Simethicone 15 ml Q8HP PRN PO 08/22/25 00:45 Ondansetron HCl 4 mg Q4HPRN PRN IV 08/22/25 00:45 Metoprolol Succinate 25 mg DAILY PO 08/22/25 10:00 08/22/25 08:25 25 MG Enoxaparin Sodium 30 mg DAILY SC 08/22/25 10:00 08/22/25 08:25 30 MG Polyethylene Glycol 17 gm DAILYPRN PRN PO 08/22/25 10:45 Losartan Potassium 75 mg DAILY PO 08/22/25 22:00 Dicyclomine HCl 20 mg BIDPRN PRN PO 08/22/25 11:45 Bisacodyl 5 mg BID PO 08/22/25 22:00 Examination Exam General: The patient alert and oriented in person place and time. Patient following commands HEENT: Normocephalic, atraumatic, normal reactive pupils, EOM intact, pink conjunctiva, pink dry mucous membrane Respiratory/pulmonary: Bilateral chest expansion, no pain on palpation of chest wall, clear lungs bilaterally, vesicular murmurs present in almost all lung jones, no associated crackles or wheezes. Cardiovascular: Normal RRR, normal S1 and S2, no murmurs Abdomen: Abdomen nondistended, hyperactive bowel sounds, soft, mild diffuse abdominal tenderness, no palpable masses. Rectal exam: No active bleeding, no palpable masses, hard stool high up in the rectum. Extremities: No deformities, there is no peripheral edema present at the lower extremities, normal pulses Skin: No rashes or pruritus, there is no sacral edema present at this time. Neurological: Intact cranial nerves with no focal neurologic deficits laboratory and microbiology Laboratory Tests 08/22/25 04:20 Test 08/22/25 04:20 Range/Units Serum Glucose 98 74-106 mg/dL Labs and/or images reviewed: Labs reviewed by me, Image(s) reviewed by me Problem List/Assessment/Plan Problem List/Assessment/Plan Intractable Abdominal Pain secondary to Acute Colitis - Abdominal CT: Moderate fluid in the ascending and transverse colon, suggestive of diarrhea, correlate clinically for possible enteritis. - NS 1000 cc bolus - NS 500 cc bolus - Metronidazole 500 mg IV q.8 hours - Clindamycin 300 mg IV q.8 hours ( per pharmacy recommendation as patient is allergic to cephalosporins ), discontinued - Clear liquid diet - Zofran 4 mg IV q 4 hours PRN Dehydration due to above Lactic Acidosis likely due to above (2.1 -> 1. 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 Possible GERD - Maalox 30 mL PO once - Maalox 15 mL q 8 hours PRN Constipation impacted stool Bisacodyl MiraLax Manual disimpaction in attempted with partial success Hypertensive Urgency - Monitor BP - Clonidine 0.2 mg PO once - Losartan 25 mg PO daily - Metoprolol succinate 25 PO daily - Amlodipine 10 mg PO daily - EKG shows Ectopic atrial rhythm with repolarization abnormalities probably secondary to LVH - Ordered echocardiogram, troponin and BNP Pulmonary nodules - Abdominal CT: Scattered nodules at both lung bases measuring up to 5 mm. 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 Plan discussed with: Patient, Other (RN) Date of Service: Aug 22, 2025 Billing Provider: TRENT EMERSON MD Common Visit Codes: [id number] INP/OBS CARE(HIGH) KENNYGALA ZAPIEN Aug 22, 2025 15:33 TRENT EMERSON MD Aug 23, 2025 22:20
[2025-08-22] MEDS: POLYETHYLENE GLYCOL 17 GM PWDR PO PRN (17:11)
[2025-08-22] MEDS ORDERED: ATORVASTATIN 20 MG TAB PO SCH (22:00)
[2025-08-22] MEDS: LOSARTAN POTASSIUM 25 MG TAB PO SCH (22:24)
[2025-08-22] MEDS: BISACODYL 5 MG EC TAB PO SCH (22:25)
[2025-08-23] VITALS (9 sets, daily range): BP systolic 92–167; BP diastolic 49–89; PULSE 65–87; RESP 16–20; TEMP 97.6–98.2; O2SAT 96–99
[2025-08-23 06:43] LABS: Hematocrit 40.6 % (36.0-46.0); Hemoglobin 13.6 g/dL (12.2-16.2); Mean Corpuscular Hemoglobin 29.7 pg (28.0-32.0); Mean Corpuscular Volume 88.5 fL (80.0-100.0); Nucleated Red Blood Cells % 0.1 %
[2025-08-23 06:57] LABS: Alanine Aminotransferase 12 U/L (7-40); Albumin 4.0 g/dL (3.2-4.8); Alkaline Phosphatase 67 U/L (46-116); Anion Gap 12 (5-15); BUN/Creatinine Ratio 7.1 (10.0-20.0); Calcium 9.4 mg/dL (8.7-10.4); Carbon Dioxide 25 mmol/L (20-31); Glucose 81 mg/dL (74-106); Potassium 3.8 mmol/L (3.5-5.1); Sodium 144 mmol/L (136-145); Total Protein 7.0 g/dL (5.7-8.2)
[2025-08-23 06:58] LABS: Bilirubin, Total 0.5 mg/dL (0.2-1.0)
[2025-08-23 07:03] LABS: Blood Urea Nitrogen 6 mg/dL (9-23); Chloride 107 mmol/L (98-107)
--- NOTE | 2025-08-23 10:30 | DVHSR ---
APPROVED REPORT EXAM: Two-dimensional and M-mode echocardiogram with Doppler and color Doppler. Blood Pressure: 139/81 mmHg INDICATION LVH in EKG RISK FACTORS Height: 63, Weight: 170 DIMENSIONS LVDd (3.8-5.7cm)LA (2D)4.7 (1.9-4.0cm)Aortic Root3.1 (2.0-3.7cm) LVDs (2.5-4.0cm)LA (MM) (1.9-4.0cm)Aortic Cusp Exc1.7 (1.5-2.0cm) EF (%) 74.0 (55-70%)Rt. Atrium3.6 (1.9-4.0cm)Asc. Aorta cm Mitral Valve MitralMitral Stenosis E wave0.81m/sMV Mean GR.mmHg A wave0.78m/sMV Peak GR.mmHg E/A ratio1.02D MVAcm2 DECEL [id number] 1/2 Qely05st IVRTmsDop MVA4.11cm2 Aortic Valve Aortic ValveAortic Stenosis V11.06m/Rebecca Mean GR.3mmHg V21.18m/Rebecca Peak GR.6mmHg LVOT Diameter1.6 (1.8-2.4cm)Doppler AVA1.81cm2 Pulmonic Valve V20.86m/s Tricuspid Valve TR Velocity2.24m/s [id number] Conclusion Sinus rhythm. Left atrial enlargement. Mild mitral annular calcification of the base of the posterior mitral leaflet. The aortic is structu rally normal. The tricuspid and pulmonic normal. Left ventricular systolic function is preserved. EF is about 60% with normal RV function. Dopplers unremarkable. No pericardial effusion masses or vegetations.
[2025-08-23] MEDS: HYDROmorphone HCL 2 MG/ML VL/or syr IV ONE (14:50)
--- NOTE | 2025-08-23 17:31 | DVHPNRES ---
Progress Note Date Seen: Aug 23, 2025 Resident Creating Document: GALA COX RESIDENT Medical Necessity Reason Pt with a Central, PICC or Fol: No Subjective Review of Systems Ms. Espinoza is an 80-year-old female with prior medical history of IBS, hemorrhoids, hypertension, arthritis, peripheral neuropathy, and questionable atrial flutter, who presents today with chief complaint of abdominal pain. The patient refers onset of epigastric pain approximately 2 weeks ago, described as colicky, becoming generalized, 8/10 intensity, without aggravating or relieving factors, associated with diarrhea on Wednesday. The patient states that in the last 24 hours she has developed nausea and multiple emetic episodes (8-10), stating she has been unable to hold down food or drink. She denies fever, bloody vomit, chest pain, palpitations, loss of consciousness, and other symptoms. On evaluation in the ED, the patient was hypertensive with BP reading of 200/110, other vitals were stable. Initial labs show CBC within normal range, and lactic acid of 2.1. Abdominal CT shows moderate fluid in the ascending and transverse colon suggestive diarrhea possibly due to enteritis. She was started on IV fluids, IV pain medication, and IV antibiotics. She was admitted for further workup and monitoring. Personal History: IBS, hemorrhoids, hypertension, arthritis, peripheral neuropathy, questionable atrial flutter Surgical history: Ovarian cyst removal, right total hip replacement, rotator cuff repair Allergies: Keflex ( causes throat swelling), ciprofloxacin ( causes face swelling) Social: Denies drug, alcohol, and tobacco use. States she lives by herself and feels safe. The patient was seen and examined at bedside. Overnight events were reviewed. This morning patient reports feeling better, however, in the afternoon patient started feeling bloated and abdominal pain. Patient had a bowel movement following tap water enema. She reports having chest tightness as well. No other complaints reported. Objective vital signs Vital Sign Date Time Temp Pulse Resp B/P (MAP) Pulse Ox O2 Delivery O2 Flow Rate FiO2 08/23/25 17:00 98.0 81 20 92/55 (67) 99 98.0 08/23/25 08:00 Room Air* 0 21 Total Intake and Output 08/22/25 08/22/25 08/23/25 15:00 23:00 07:00 Intake Total 100 ml 1000 ml 700 ml Balance 100 ml 1000 ml 700 ml medications Current Medications Medications Dose Ordered Sig/Tim Route Start Time Stop Time Status Last Admin Dose Admin Amlodipine Besylate 10 mg DAILY PO 08/22/25 10:00 08/23/25 08:58 10 MG Aspirin 81 mg DAILY PO 08/22/25 10:00 08/23/25 08:59 81 MG Metronidazole 100 ml @ 100 mls/hr Q8HR IV 08/22/25 00:45 08/23/25 06:05 100 MLS/HR Ondansetron HCl 4 mg Q4HPRN PRN IV 08/22/25 00:45 Metoprolol Succinate 25 mg DAILY PO 08/22/25 10:00 08/23/25 08:59 25 MG Polyethylene Glycol 17 gm DAILYPRN PRN PO 08/22/25 10:45 08/22/25 17:11 17 GM Losartan Potassium 75 mg DAILY PO 08/22/25 22:00 08/22/25 22:24 75 MG Bisacodyl 5 mg BID PO 08/22/25 22:00 08/23/25 08:58 5 MG Acetaminophen 650 mg Q4HP PRN PO 08/22/25 17:00 08/22/25 17:12 650 MG Hydralazine HCl 25 mg Q8H PO 08/23/25 19:00 Enoxaparin Sodium 40 mg DAILY SC 08/24/25 10:00 Examination Exam General: The patient alert and oriented in person place and time. Patient following commands HEENT: Normocephalic, atraumatic, normal reactive pupils, EOM intact, pink conjunctiva, pink dry mucous membrane Respiratory/pulmonary: Bilateral chest expansion, no pain on palpation of chest wall, clear lungs bilaterally, vesicular murmurs present in almost all lung jones, no associated crackles or wheezes. Cardiovascular: Normal RRR, normal S1 and S2, no murmurs Abdomen: Abdomen nondistended, hyperactive bowel sounds, soft, mild diffuse abdominal tenderness, no palpable masses. Rectal exam: No active bleeding, no palpable masses, hard stool high up in the rectum. Extremities: No deformities, there is no peripheral edema present at the lower extremities, normal pulses Skin: No rashes or pruritus, there is no sacral edema present at this time. Neurological: Intact cranial nerves with no focal neurologic deficits laboratory and microbiology Laboratory Tests 08/23/25 04:40 Test 08/23/25 04:40 Range/Units Serum Glucose 81 74-106 mg/dL Labs and/or images reviewed: Labs reviewed by me, Image(s) reviewed by me Problem List/Assessment/Plan Problem List/Assessment/Plan Intractable Abdominal Pain secondary to Acute Colitis Abdominal CT: Moderate fluid in the ascending and transverse colon, suggestive of diarrhea, correlate clinically for possible enteritis. X ray KUB on 08/23/2025 showed: Possible ileus. No acute obstruction NS 1000 cc bolus NS 500 cc bolus Metronidazole 500 mg IV q.8 hours Clindamycin 300 mg IV q.8 hours ( per pharmacy recommendation as patient is allergic to cephalosporins ), discontinued Zofran 4 mg IV q 4 hours PRN Iv dilaudid Dehydration due to above Lactic Acidosis likely due to above (2.1 -> 1. - IV fluids Ectopic atrial rhythm Borderline short KS interval Probable LVH with secondary repolarization abnormalities Echocardiogram: Sinus rhythm. Left atrial enlargement. Mild mitral annular calcification of the base of the posterior mitral leaflet. The aortic is structurally normal. The tricuspid and pulmonic normal. Left ventricular systolic function is preserved. EF is about 60% with normal RV function. Dopplers unremarkable. No pericardial effusion masses or vegetations. Follow up outpatient with (patient's cherry dipper). Possible GERD - Maalox 30 mL PO once - Maalox 15 mL q 8 hours PRN Constipation impacted stool Bisacodyl MiraLax Manual disimpaction is attempted with partial success Tap water enema Patient is encouraged to eat high fibre diet Hypertensive Urgency Monitor BP Clonidine 0.2 mg PO once Losartan 25 mg PO daily Metoprolol succinate 25 PO daily Amlodipine 10 mg PO daily EKG shows Ectopic atrial rhythm with repolarization abnormalities probably secondary to LVH Hydralazine 25 mg Q8 oral Pulmonary nodules Abdominal CT: Scattered nodules at both lung bases measuring up to 5 mm. 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
[2025-08-23] MEDS ORDERED: HYDROMORPHONE HCL 1 MG/ML INJ IV PRN (19:00)
--- NOTE | 2025-08-23 19:23 | DVH ---
Date: 08/23/2025 06:44 PM Examination: XY KUB ABDOMEN SINGLE VIEW History: Severe abdominal pain Comparison: None TECHNIQUE: Frontal views of the abdomen was obtained. FINDINGS: Bowel gas pattern is unremarkable. The lung bases are unremarkable. Postop changes at L4-5 and L5-S1. Round calcifications in the pelvis most likely calcified uterine fibroids. Bipolar right hip prosthesis IMPRESSION: 1. Nonobstructive bowel gas pattern. 2. Findings most consistent with ileus. Recommend follow-up study to exclude developing obstruction. 3. Calcified uterine fibroid 4. Postop changes of the lower lumbar spine.
[2025-08-23] MEDS: DICYCLOMINE HCL (10MG/ML) 2 ML AMPULE IM PRN (21:35)
--- NOTE | 2025-08-24 00:50 | ECG ---
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
[2025-08-24 01:00] VITALS: BP 165/92; PULSE 97; RESP 18; TEMP 97.9; O2SAT 95
[2025-08-24] MEDS ORDERED: KETOROLAC TROMETH 30 MG/ML 1ML VIAL ONE (01:23)
[2025-08-24] MEDS: KETOROLAC TROMETH 30 MG/ML 1ML VIAL IV ONE (01:23)
[2025-08-24 02:43] LABS: Hematocrit 42.7 % (36.0-46.0); Hemoglobin 14.3 g/dL (12.2-16.2); Mean Corpuscular Hemoglobin 29.3 pg (28.0-32.0); Mean Corpuscular Volume 87.6 fL (80.0-100.0); Nucleated Red Blood Cells % 0.1 %
[2025-08-24 02:52] LABS: Chloride 106 mmol/L (98-107); Sodium 141 mmol/L (136-145)
[2025-08-24 02:53] LABS: Anion Gap 14 (5-15); Carbon Dioxide 21 mmol/L (20-31)
[2025-08-24 02:54] LABS: Calcium 9.7 mg/dL (8.7-10.4)
[2025-08-24 02:59] LABS: BUN/Creatinine Ratio 7.9 (10.0-20.0)
[2025-08-24 03:02] LABS: Blood Urea Nitrogen 7 mg/dL (9-23); Glucose 116 mg/dL (74-106); Potassium 3.5 mmol/L (3.5-5.1)
[2025-08-24 08:36] VITALS: BP 156/63; PULSE 101; RESP 20; TEMP 98.9; O2SAT 97
[2025-08-24] MEDS: ENOXAPARIN SOD 40 MG/0.4 ML SYRINGE SC SCH (09:56)
[2025-08-24] MEDS ORDERED: GASTROGRAFIN 120 ML SOL ONE (10:51)
--- NOTE | 2025-08-24 10:53 | ECG ---
[facility] Test Date: 2025-08-23 Test Time: 18:32:52 Pat Name: KERI PRIETO Department: Respiratoy Room: 0201T A Gender: F Sisal Operator: NAYA PENNINGTON : 1945 Requested By: GALA COX Order Number: [id number] Reading MD: Gary Duran Measurements Intervals [place] Rate: 76 P: -61 MD: 158 QRS: 24 QRSD: 77 T: 155 QT: 412 QTc: 464 Interpretive Statements Ectopic atrial rhythm Probable LVH with secondary repol abnrm Abnormal T, probable ischemia, anterior leads Minimal ST elevation, inferior leads Electronically Signed On 08-25-2025 17:36:10 PDT by Gary Duran Please click the below link to view image of tracing.
--- NOTE | 2025-08-24 12:40 | DVH ---
Procedure: XY SMALL BOWEL SERIES-W GASTROGRA Reason for study/Clinical History: r/o sbo Comparison Study: XY KUB ABDOMEN SINGLE VIEW on DOS: 08/23/25, US ABDOMEN LIMITED on DOS: 08/22/25, C T CT AB PEL WO CON-NO ORAL OR IV on DOS: 08/21/25 Technique: Single contrast small bowel series performed. FINDINGS/IMPRESSION: Initial field cashier view of the abdomen and pelvis appears demonstrates no acute process. Contrast is identified within the colon by 1 hr. This represents a normal small bowel transit time.
[2025-08-24 12:55] VITALS: BP 134/77; PULSE 86; RESP 18; TEMP 98.7; O2SAT 96
[2025-08-24] MEDS ORDERED: AUG875T PO (13:05)
[2025-08-24] MEDS ORDERED: POLY33505 PO (13:12)
[2025-08-24] MEDS ORDERED: BISA1TAB6 PO (13:12)
[2025-08-24 17:30] VITALS: BP 131/75; PULSE 102; RESP 20; TEMP 98.8; O2SAT 97
--- NOTE | 2025-08-24 19:50 | DVHDSRES ---
Discharge Summary Date of Admission Resident Creating Document: GALA COX Aug 21, 2025 at 23:15 Date of Discharge: Aug 24, 2025 Labs/Diagnostic Data: Laboratory Results Test 08/24/25 02:08 08/24/25 02:06 08/23/25 04:40 08/22/25 04:20 White Blood Count 5.9 10^3/uL (4.4-10.8) Red Blood Count 4.88 10^6/uL (4.0-5.20) Hemoglobin 14.3 g/dL (12.2-16.2) Hematocrit 42.7 % (36.0-46.0) Mean Corpuscular Volume 87.6 fL (80.0-100.0) Mean Corpuscular Hemoglobin 29.3 pg (28.0-32.0) Mean Corpuscular Hemoglobin Concent 33.5 g/dL (32.0-36.0) Red Cell Distribution Width 14.5 % (11.8-14.3) Platelet Count 339 10^3/uL (140-450) Mean Platelet Volume 7.7 fL (6.9-10.8) Neutrophils (%) (Auto) 49.7 % (37.0-80.0) Lymphocytes (%) (Auto) 34.5 % (10.0-50.0) Monocytes (%) (Auto) 11.2 % (0.0-12.0) Eosinophils (%) (Auto) 3.9 % (0.0-7.0) Basophils (%) (Auto) 0.7 % (0.0-2.0) Neutrophils # (Auto) 2.9 10 ^3/uL (1.6-8.6) Lymphocytes # (Auto) 2.1 10 ^3/uL (0.4-5.4) Monocytes # (Auto) 0.7 10 ^3/uL (0-1.3) Eosinophils # (Auto) 0.2 10 ^3/uL (0-0.8) Basophils # (Auto) 0 10 ^3/uL (0-0.2) Nucleated Red Blood Cells 0.1 % Sodium Level 141 mmol/L (136-145) Potassium Level 3.5 mmol/L (3.5-5.1) Chloride Level 106 mmol/L (98-107) Carbon Dioxide Level 21 mmol/L (20-31) Anion Gap 14 (5-15) Blood Urea Nitrogen 7 mg/dL (9-23) Creatinine 0.89 mg/dL (0.550-1.02) Glomerular Filtration Rate Calc 66 mL/min (>90) BUN/Creatinine Ratio 7.9 (10.0-20.0) Serum Glucose 116 mg/dL (74-106) Calcium Level 9.7 mg/dL (8.7-10.4) Troponin I High Sensitivity 10 ng/L (</=34) Total Bilirubin 0.5 mg/dL (0.2-1.0) Aspartate Amino Transferase (AST) 25 U/L (13-40) Alanine Aminotransferase (ALT) 12 U/L (7-40) Alkaline Phosphatase 67 U/L (46-116) Total Protein 7.0 g/dL (5.7-8.2) Albumin 4.0 g/dL (3.2-4.8) B-Type Natriuretic Peptide 89.68 pg/mL (0-100) Test 08/22/25 01:50 08/21/25 20:04 08/21/25 18:00 Urine Color Yellow (Yellow) Urine Clarity Clear (Clear) Urine pH 6.5 (5.0-9.0) Urine Specific [place] 1.014 (1.001-1.035) Urine Protein Negative (Negative) Urine Ketones 1+ (Negative) Urine Blood Negative /uL (Negative) Urine Nitrite Negative (Negative) Urine Bilirubin Negative (Negative) Urine Urobilinogen Normal mg/dL (Negative) Urine Leukocyte Esterase Negative /uL (Negative) Urine RBC None seen /hpf (0 - 4) Urine Microscopic WBC 2 /HPF (0-5) Urine Squamous Epithelial Cells Few /hpf (<5) Urine Bacteria None seen /hpf (None Seen) Urine Hyaline Casts Few /lpf (0 - 2) Urine Glucose Normal mg/dL (Normal) Lactic Acid Level 1.8 mmol/L (0.4-2.0) Lipase 33 U/L (12-53) Other Laboratory Tests 08/24/25 02:08 Brief Hx & Hospital Course: Ms. Espinoza is an 80-year-old female with prior medical history of IBS, hemorrhoids, hypertension, arthritis, peripheral neuropathy, and questionable atrial flutter, who presents today with chief complaint of abdominal pain. The patient refers onset of epigastric pain approximately 2 weeks ago, described as colicky, becoming generalized, 8/10 intensity, without aggravating or relieving factors, associated with diarrhea on Wednesday. The patient states that in the last 24 hours she has developed nausea and multiple emetic episodes (8-10), stating she has been unable to hold down food or drink. She denies fever, bloody vomit, chest pain, palpitations, loss of consciousness, and other symptoms. On evaluation in the ED, the patient was hypertensive with BP reading of 200/110, other vitals were stable. Initial labs show CBC within normal range, and lactic acid of 2.1. Abdominal CT shows moderate fluid in the ascending and transverse colon suggestive diarrhea possibly due to enteritis. She was started on IV fluids, IV pain medication, and IV antibiotics. She was admitted for further workup and monitoring. Personal History: IBS, hemorrhoids, hypertension, arthritis, peripheral neuropathy, questionable atrial flutter Surgical history: Ovarian cyst removal, right total hip replacement, rotator cuff repair Allergies: Keflex ( causes throat swelling), ciprofloxacin ( causes face swelling) Social: Denies drug, alcohol, and tobacco use. States she lives by herself and feels safe. The patient was seen and examined at bedside. Overnight events were reviewed. This morning patient reports feeling better, however, in the afternoon patient started feeling bloated and abdominal pain. Patient had a bowel movement following tap water enema. She reports having chest tightness as well. No other complaints reported. On admission, the patient was treated for hypertensive urgency with clonidine, losartan, metoprolol amlodipine and hydralazine Q 8 was given. On further evaluation the patient was initially diagnosed with, enteritis. However , the clinical picture was more related with constipation and above liquid stool. suggestive of encopresis. However, there was no bowel wall thickening noted on the CT scan.X-ray suggested ileitis. Small bowel series ruled out obstruction or acute process. CConstipation was managed with manual disimpaction, laxatives and tap water enema. Which relieved her constipation. her pain was managed with IV Dilaudid. She was treated with metronidazole and clindamycin, clindamycin was discontinued later. For her diffuse abdominal pain, dicyclomine was given. The patient reports improvement in her stomach pain after that. The patient reports eating a lot of meat and fish without vegetables except for reported dose. She was advised to add more vegetables with each meal. During her hospital stay, patient complained of multiple episodes of chest tightness, ACS was ruled out by serial EKGs and troponis. Her EKG revealed ectopic atrial rhythm, echo was done, which revealed ejection fraction 60% with normal RV function and no other significant abnormality detected except for left atrial enlargement, mild mitral annular calcification of the base of the posterior mitral leaflet. Aorta was normal. The patient agreed to follow up with her materials planning analyst Dr. Gibson. During her hospital stay patient had room several episodes of chest tightness, however EKG and troponin for each episode was negative. Patient was given loading dose aspirin however 1 time. On discharge, the patient was advised to follow up with PCP, DC clinic, materials planning analyst, manager strategic for lung nodules and chief merchandising officer for calcified fibroid uterus. The discharge plan and treatment was discussed with the son who was at the bedside. The patient and the son verbalized understanding of the discharge plan. Case discussed with Dr. Emerson Operations or Procedures PATIENT: KERI ESPINOZA JACCT: [id number]: [id number] : 1945 [facility] AGE / SEX: 80 / F ADM STATUS: ADM IN SERVICE 0400 ORDERING PHYSICIAN: DORIAN YAÑEZ RESIDENT PROCEDURE(s): SMBG - SMALL BOWEL SERIES-W GASTROGRA REASON: r/o sbo ORDER NUMBER(s): [id number], ACCESSION NUMBER(s): [id number] Procedure: XY SMALL BOWEL SERIES-W GASTROGRA Reason for study/Clinical History: r/o sbo Comparison Study: XY KUB ABDOMEN SINGLE VIEW on DOS: 08/23/25, US ABDOMEN LIMITED on DOS: 08/22/25, CT CT AB PEL WO CON-NO ORAL OR IV on DOS: 08/21/25 Technique: Single contrast small bowel series performed. FINDINGS/IMPRESSION: Initial circuit breaker assembler view of the abdomen and pelvis appears demonstrates no acute process. Contrast is identified within the colon by 1 hr. This represents a normal small bowel transit time. ENT: KERI ESPINOZA JACCT: [id number] UNIT: [id number] : 1945 LOC: CENTRAL ROOM / BED: 0201 / A AGE / SEX: 80 / F ADM STATUS: ADM IN SERVICE 0415 ORDERING PHYSICIAN: FARIDA PHILLIPS PROCEDURE(s): ECIDC - ECHO 2D MODE CARDIAC DOP REASON: LVH in EKG ORDER NUMBER(s): [id number], ACCESSION NUMBER(s): [id number] APPROVED REPORT EXAM: Two-dimensional and M-mode echocardiogram with Doppler and color Doppler. Blood Pressure: 139/81 mmHg INDICATION LVH in EKG RISK FACTORS Height: 63, Weight: 170 DIMENSIONS LVDd (3.8-5.7cm) LA (2D) 4.7 (1.9-4.0cm) Aortic Root 3.1 (2.0- 3.7cm) LVDs (2.5-4.0cm) LA (MM) (1.9-4.0cm) Aortic Cusp Exc 1.7 (1.5- 2.0cm) EF (%) 74.0 (55-70%) Rt. Atrium 3.6 (1.9-4.0cm) Asc. Aorta cm Mitral Valve Mitral Mitral Stenosis E wave 0.81m/s MV Mean GR. mmHg A wave 0.78m/s MV Peak GR. mmHg E/A ratio 1.0 2D MVA cm2 DECEL Time 209ms PRESS 1/2 Time 54ms IVRT ms Dop MVA 4.11cm2 Aortic Valve Aortic Valve Aortic Stenosis V1 1.06m/s AO Mean GR. 3mmHg V2 1.18m/s AO Peak GR. 6mmHg LVOT Diameter 1.6 (1.8-2.4cm) Doppler AVRIL 1.81cm2 Pulmonic Valve V2 0.86m/s Tricuspid Valve TR Velocity 2.24m/s RVSP 23mmHg Conclusion Sinus rhythm. Left atrial enlargement. Mild mitral annular calcification of the base of the posterior mitral leaflet. The aortic is structurally normal. The tricuspid and pulmonic normal. Left ventricular systolic function is preserved. EF is about 60% with normal RV function. Dopplers unremarkable. No pericardial effusion masses or vegetations. SIGNED BY: CARSON GRIGSBY Sr., MD SIGNED DATE/TIME: 08/23/25 1030 CC: PATIENT: KERI ESPINOZA JACCT: [id number]: [id number] : 1945 LOC: CENTRAL ROOM / BED: 0201 / A AGE / SEX: 80 / F ADM STATUS: ADM IN SERVICE 182 ORDERING PHYSICIAN: GALA COX PROCEDURE(s): KUB - KUB ABDOMEN SINGLE VIEW REASON: Severe abdominal pain ORDER NUMBER(s): [id number], ACCESSION NUMBER(s): [id number] Date: 08/23/2025 06:44 PM Examination: XY KUB ABDOMEN SINGLE VIEW History: Severe abdominal pain Comparison: None TECHNIQUE: Frontal views of the abdomen was obtained. FINDINGS: Bowel gas pattern is unremarkable. The lung bases are unremarkable. Postop changes at L4-5 and L5-S1. Round calcifications in the pelvis most likely calcified uterine fibroids. Bipolar right hip prosthesis IMPRESSION: 1. Nonobstructive bowel gas pattern. 2. Findings most consistent with ileus. Recommend follow-up study to exclude developing obstruction. 3. Calcified uterine fibroid 4. Postop changes of the lower lumbar spine. ATED BY: EUGENIO GAITAN Jr., DO DICTATED DATE/TIME: 08/23/251919 SIGNED BY: EUGENIO GAITAN Jr., SIGNED DATE/TIME: 08/23/251919 CC: ATIENT: KERI ESPINOZA JACCT: [id number] UNIT: [id number] : 1945 LOC: ER ROOM / BED: / AGE / SEX: 80 / F ADM STATUS: REG ER SERVICE 1745 ORDERING PHYSICIAN: RONNA SUAZO PROCEDURE(s): ABPL - CT AB PEL WO CON-NO ORAL OR IV REASON: abd pain ORDER NUMBER(s): [id number], ACCESSION NUMBER(s): [id number] COMPUTERIZED TOMOGRAPHY ABDOMEN AND PELVIS WITHOUT CONTRAST REASON FOR EXAM: abd pain COMPARISON: None TECHNIQUE: Spiral scans were acquired from the diaphragm to the symphysis pubis without intravenous contrast administration. 2-D coronal and sagittal reformatted images were provided. Radiation optimization: All CT scans at this facility use at least one of these dose optimization techniques: Automated exposure control mA and/or kV adjustment per patient size (includes targeted exams where dose is matched to clinical indication) or iterative reconstruction. RADIATION DOSE: CTDI: 11.87 mGy DLP: 609.14 mGy-cm FINDINGS: There are 3 mm and 4 mm nodules in the anterior right middle lobe. There is a 5 mm nodule in the right lower lobe near the costophrenic sulcus. There is a 5 mm nodule in the medial right lower lobe near the base. There is a 5 mm nodule at the periphery of the left lower lobe. There are additional scattered 3-4 mm nodules in the visualized lung bases. There is no pleural effusion. There is no pericardial effusion. There are coronary artery calcifications. The spleen is not enlarged. The liver is normal in size and contour. Evaluation of the abdominal organs is suboptimal in the absence of intravenous contrast. No calcified gallstone is identified. There is no pericholecystic edema. Unenhanced appearance of the pancreas is unremarkable. The adrenal glands are normal. The kidneys are similar in size. There is no hydronephrosis of either kidney. There is no renal, ureteral, or bladder calculus. There is no abdominal aortic aneurysm. No pathologic lymphadenopathy is identified by size criteria. There are multiple calcified fibroids. The ovaries are within normal limits for age. No free fluid is identified in the abdomen or pelvis. The urinary bladder is grossly unremarkable within the limitations of streak artifact from the right hip prosthesis. There is mild descending colonic diverticulosis without evidence of diverticulitis. There is moderate fluid in the ascending and transverse colon, suggestive of diarrhea. The appendix is not seen. There is no pericecal inflammatory change to suggest acute appendicitis. There is no significant distention of the small bowel. No acute osseous abnormality is identified. There is surgical fusion of the posterior elements of L4, L5, and S1. IMPRESSION: Moderate fluid in the ascending and transverse colon, suggestive of diarrhea. Correlate clinically for possible enteritis. Scattered nodules at both lung bases measuring up to 5 mm. According to the Fleischner society guidelines, no dedicated follow-up is recommended. Fleischner Society Guidelines for Incidental Pulmonary Nodules: SOLID NODULES Single low-risk: < 6 mm No follow up. 6-[address] at 6-12 months, then consider CT at 18-24 months. > [address] at 3 months, PET/CT or bx. Single high risk: < [address] at 12 months. 6-[address] at 6-12 months, then consider CT at 18-24 months. > [address] at 3 months, PET/CT or bx. Multiple low risk: < 6 mm No follow up. 6-[address] at 3-6 months, then consider CT at 18-24 months. > [address] at 3-6 months, then consider CT at 18-24 months. Multiple high risk: < [address] at 12 months. 6-[address] at 3-6 months, then CT at 18-24 months. > [address] at 3-6 months, then CT at 18-24 months. SUBSOLID NODULES Ground glass: < 6 mm No follow up. > [address] at 6-12 months, then CT every 2 years for 5 years. Part solid: < 6 mm No follow up. > [address] at 3-6 months. If stable with solid component <6mm, annual CT for 5 years. Multiple: < [address] at 3-6 months. If stable, consider CT at 2 and 4 years. > [address] at 3-6 months. Subsequent based on most suspicious nodule. Notes: Recommendations do not apply to cancer screening, patient with immunosuppression or known primary cancer. Reference: Radiology 2017; MacMahon et al; 000:1-16 ATED BY: WARREN JOHNSON MD DICTATED DATE/TIME: 08/21/251856 SIGNED BY: WARREN JOHNSON MD SIGNED DATE/TIME: 08/21/251856 CC: PATIENT: KERI ESPINOZA JACCT: [id number]: [id number] : 1945 LOC: CENTRAL ROOM / BED: 0201 / A AGE / SEX: 80 / F ADM STATUS: ADM IN SERVICE 6 ORDERING PHYSICIAN: ASTRID AWAN RESIDENT PROCEDURE(s): ABDL - ABDOMEN LIMITED REASON: eval livere and GB ORDER NUMBER(s): [id number], ACCESSION NUMBER(s): [id number] INDICATION: eval livere and GB TECHNIQUE: Multiple real-time sonographic images were obtained of the right upper quadrant. COMPARISON: None FINDINGS: The liver demonstrates normal homogeneous echotexture without focal mass lesions. The liver measures 12.5 cm. Normal hepatopetal portal venous flow identified. No evidence of pleural effusion or abdominal ascites. There is no intrahepatic or extrahepatic ductal dilatation. The common duct measures 0.4 cm. The gallbladder is without evidence of stone or sludge. The gallbladder wall measures 0.3 cm and is within normal limits. Negative sonographic Quiñonez's sign. The right kidney measures 8.3 cm. The right kidney is normal in contour, size, and shape. The echogenicity is normal. There is no hydronephrosis. The pancreas is not well visualized due to overlying bowel gas. IMPRESSION: 1. Unremarkable right upper quadrant sonogram. ATED BY: PRASAD PRICE MD DICTATED DATE/TIME: 08/22/25337 SIGNED BY: PRASAD PRICE MD SIGNED DATE/TIME: 08/22/25337 CC: Condition at Discharge: Stable Final Diagnosis/Problems List Acute enteritis Constipation with encopresis Ruled out small bowel obstruction Dehydration GERD Hypertensive urgency Chest pain ruled out ACS Pulmonary nodules IBS Calcified uterine fibroid Discharge Disposition: Home Discharge Instruct/Medications Diet: Cardiac 2g Na,low cholest Diet comment: HIGH FIBER DIET Activity: No Restrictions, As Tolerated Follow Up/Referral: Follow up with the PCP in one week Follow up in the d/c clinic Medications: continue on home medications avoid pain medication including oxycodone and norco as they cause constipation rest meds as per JAN Scheduled Alprazolam (Xanax), 0.25 MG PO PRN, (Reported) Amoxicillin & Pot Clavulanate (Augmentin Tablet), 875 MG PO BID Aspirin (Asa), 81 MG PO DAILY Atorvastatin Calcium (Atorvastatin Calcium), 10 MG PO HS Bisacodyl (Dulcolax Ec Tablet), 5 MG PO DAILY Folic Acid (Folic Acid), 1 MG PO DAILY, (Reported) Gabapentin (Gabapentin), 300 MG PO QPM, (Reported) Methotrexate (Methotrexate), Unknown Dose PO QWEEKLY, (Reported) Polyethylene Glycol (Miralax), 17 GM PO DAILY Pravastatin Sodium (Pravachol Tablet), 40 MG PO HS, (Reported) Scheduled PRN Hydrocodone-Acetaminophen ([place] 10/325MG), 1 TAB PO Q4HPRN PRN for MODERATE PAIN, (Reported) Ondansetron (Zofran), 8 MG PO Q6HPRN PRN for NAUSEA / VOMITING, (Reported) Oxycodone Hcl (OxyCONTIN ER Tablet), 10 MG PO Q8HPRN PRN for MODERATE PAIN, (Reported) Simethicone (Simethicone), 1 TAB PO Q8HR PRN Discontinued Medications Losartan Potassium (Losartan Potassium), 50 MG PO BID, (Reported) Discharge Statement: "Patient was advised to return to the ER or call 911 if any headaches, dizziness, shortness of breath, chest pain, abdominal pain, bleeding, fevers, or worsening of medical condition. Patient was counseled about treatment plan, medications, possible side effects, patientverbalized understanding. All questions were answered to the best of my ability. This discharge took greater then 30 minutes in planning, reviewing documentation, counseling the patient, and discussing with other team members." ASSESSMENT ASSESSMENT Assessment severe constipation acute colitis likely d/t above Hypertensive emergency Date of Service: Aug 24, 2025 Billing Provider: TRENT EMERSON MD Common Visit Codes: 64112-UEJ/OBS DISCH DAY >30min GALA COX Aug 24, 2025 19:50 TRENT EEMRSON MD Aug 27, 2025 02:28
== END 2025-08-24 17:39 | disposition home or self-care (01) | DRG 391 ==
LOC: EDBD 17:28 → ER 17:28 → OVERFLOW 23:15 → CENTRAL 08-22 02:30 → TELE-CENTR 08-24 10:10
PROVIDERS: ADMIT Internal Medicine; ATTEND Internal Medicine
DX: A09 Infectious gastroenteritis and colitis, unspecified (principal); I21.A1 Myocardial infarction type 2; E87.20 Acidosis, unspecified; I16.1 Hypertensive emergency; K58.9 Irritable bowel syndrome, unspecified; E86.0 Dehydration; K21.9 Gastro-esophageal reflux disease without esophagitis; I25.10 Atherosclerotic heart disease of native coronary artery without angina pectoris; I10 Essential (primary) hypertension; K59.00 Constipation, unspecified; G62.9 Polyneuropathy, unspecified; D25.9 Leiomyoma of uterus, unspecified; Z96.641 Presence of right artificial hip joint; Z88.1 Allergy status to other antibiotic agents; Z88.8 Allergy status to other drugs, medicaments and biological substances; Z79.82 Long term (current) use of aspirin; Z79.899 Other long term (current) drug therapy
CPT/HCPCS: 36415; 74018; 74176; 74250; 76705; 80048; 80053; 81001; 83605; 83690; 83880; 84484; 85025; 93005; 93306; 96360; G0378; J1885; J3490